=== PATIENT | female | born 1960 | race Caucasian/White ===

== ENCOUNTER → 2019-06-16 | Outpatient (CLI) | payer SELFPAY ==
--- NOTE | 2019-06-16 07:29 | BI_ITS ---
MAMMOGRAPHY - BILATERAL SCREENING REASON FOR EXAM: Female, 58 years old. Routine annual screening examination. PERTINENT HISTORY: Non-contributory. Remote right ultrasound-guided breast biopsy. TECHNIQUE: Digital bilateral breast elaine (3D mammographic acquisition) in the CC and MLO projections. 2-D mediolateral oblique (MLO) and craniocaudad (CC) views of both breasts were obtained. CAD: Full Field Digital Mammography with Computer Added Detection was performed. COMPARISON: Comparison is made with prior outside examination dated May 10, 2014. FINDINGS: Breast Composition: The breasts are extremely dense, which lowers the sensitivity of mammography. There are no dominant masses or suspicious calcifications. A tissue clip marker is seen in the central medial aspect of the right breast. No other significant abnormalities are identified. There has been no significant change since the prior study. BI/SCREEN MAMM (CAD) W/ELAINE BILAT IMPRESSION: Stable bilateral screening mammogram. Yearly follow-up mammogram recommended. (A) ASSESSMENT CATEGORY: BIRADS Category 2: Benign. A letter regarding these results will be sent to the patient by the facility within 30 days. Approximately 10% of breast cancers are not detected by mammography. A normal mammogram should not delay biopsy of a clinically suspicious abnormality. [id number] Electronically Signed: Johnson Verde, at 8:52 EDT , Service support ,
== END | disposition home or self-care (01) ==
PROVIDERS: Family Provider Family Medicine; PCP Family Medicine; Referring Provider Family Medicine; Visit Provider Family Medicine
DX: Z12.31 Encounter for screening mammogram for malignant neoplasm of breast (principal)
CPT/HCPCS: 77063; 77067

== ENCOUNTER → 2023-04-30 | Outpatient (CLI) | payer OTHER, SELFPAY ==
--- NOTE | 2023-04-30 07:35 | BI_ITS ---
MAMMOGRAPHY - BILATERAL SCREENING REASON FOR EXAM: Female, 62 years old. Routine annual screening examination. PERTINENT HISTORY: Non-contributory. TECHNIQUE: Digital bilateral breast elaine (3D mammographic acquisition) in the CC and MLO projections. 2-D mediolateral oblique (MLO) and craniocaudad (CC) views of both breasts were obtained. CAD: Full Field Digital Mammography with Computer Added Detection was performed. COMPARISON: Comparison is made with prior study dated June 16, 2019 and February 12, 2010. FINDINGS: Breast Composition: The breasts are extremely dense, which lowers the sensitivity of mammography. There are no dominant masses or suspicious calcifications. A tissue clip marker is once again seen in the central medial aspect of the No other significant abnormalities are identified. There has been no significant change since the prior study. BI/SCRN MAMM (CAD)W/ELAINE BILAT IMPRESSION: Stable bilateral screening mammogram. Yearly follow-up mammogram recommended. (A) ASSESSMENT CATEGORY: BIRADS Category 2: Benign. A letter regarding these results will be sent to the patient by the facility within 30 days. Approximately 10% of breast cancers are not detected by mammography. A normal mammogram should not delay biopsy of a clinically suspicious abnormality. [id number] Electronically Signed: Johnson Verde MD at 9:06 EDT ,
[2023-04-30 08:18] LABS: Absolute Lymphocyte Count 1.24 X10^3/uL (0.83-4.51); Absolute Neutrophil Count 2.3 X10^3/uL (2.0-7.7); Basophil# 0.06 X10^3/uL; Basophil% 1.4 % (0-1); Eosinophil# 0.09 X10^3/uL; Eosinophils% 2.1 % (0-5); Hematocrit 39.1 % (37-47); Hemoglobin 12.7 g/dL (12.0-15.0); Lymphocyte # 1.24 X10^3/ul (0.83-4.51); Lymphocyte % 29.3 % (19-41); Mean Corp Hgb Conc 32.5 g/dL (32-36); Mean Corpuscular Hgb 30.3 pg (27.0-32.0); Mean Corpuscular Volume 93.3 fL (81-99); Mean Platelet Vol. 9.4 fl (6.2-12.0); Monocyte# 0.54 X10^3/uL; Monocyte% 12.8 % (0-10); NRBC Flagged by Analyzer 0 % (0-5); Neutrophil # 2.29 X10^3/uL (2.7-7.7); Neutrophil % 54.2 % (47-70); Platelet Count 275 K/mm3 (150-450); RBC Distribution Width CV 12.5 % (11.6-14.6); Red Blood Count 4.19 M/mm3 (4.2-5.4); White Blood Count 4.2 K/mm3 (4.4-11.0)
[2023-04-30 08:56] LABS: ALB/GLOB Ratio 1.2 RATIO (0.9-2.4); AST(SGOT) 16 U/L (15-37); Alanine Aminotransfer ALT/SGPT 18 U/L (13-56); Albumin, Serum 3.9 g/dL (3.2-5.0); Alkaline Phosphatase 51 U/L (45-117); Anion Gap 6 (5-15); BUN 17 mg/dL (7-18); BUN/Creat Ratio 26.8 RATIO (10-20); Calcium,Total 8.7 mg/dL (8.5-10.1); Chloride 103 mmol/L (98-107); Cholesterol 187 mg/dL (200); Creatinine, Serum 0.64 mg/dL (0.55-1.02); EST Glomerular Filtration Rate 101 mL/min (>60); Est Glom Filt Rate - Afr Amer 122 mL/min (>60); Globulin 3.2 g/dL (2.2-4.2); Glucose 92 mg/dL (74-106); High Density Lipoprotein 71 mg/dL; Potassium 3.6 mmol/L (3.5-5.1); Protein, Total 7.1 g/dL (6.4-8.2); Sodium Level 136 mmol/L (136-145); Thyroid Stim Hormone (TSH) 1.15 uIU/mL (0.358-3.74); Triglycerides 39 mg/dL; Very Low Density Lipoprotein 8 mg/dL (5-40)
[2023-04-30 09:20] LABS: Hemoglobin A1c 5.6 % (3.8-5.6)
[2023-04-30 09:29] LABS: Vitamin D,25 Hydroxy 46.2 ng/mL
== END | disposition home or self-care (01) ==
PROVIDERS: PCP Family Medicine; Referring Provider Family Medicine; Visit Provider Family Medicine
DX: Z12.31 Encounter for screening mammogram for malignant neoplasm of breast (principal); E55.9 Vitamin D deficiency, unspecified; E78.5 Hyperlipidemia, unspecified; Z13.1 Encounter for screening for diabetes mellitus; Z13.0 Encounter for screening for diseases of the blood and blood-forming organs and certain disorders involving the immune mechanism
CPT/HCPCS: 36415; 77063; 77067; 80053; 80061; 82306; 83036; 84443; 85025

== ENCOUNTER → 2023-05-20 | Outpatient (CLI) | payer OTHER, SELFPAY ==
--- NOTE | 2023-05-20 13:03 | BD_ITS ---
STUDY: DUAL ENERGY X-RAY ABSORPTIOMETRY / DXA REASON FOR EXAM: Female, 62 years old. Z13.820 TECHNIQUE: Bone Mineral Density (BMD) measurements of lumbar spine and bilateral hips were obtained. COMPARISON: None. FINDINGS: Lumbar Spine (L1-L4): g/cm2 (0.717) / T-score (-2.9) / Z-score (-1.3) Findings are suggestive of osteoporosis with a high fracture risk. Left Femur Total: g/cm2 (0.690) / T-score (-2.1) / Z-score (-1.0) Left Femoral Neck: g/cm2 (0.605) / T-score (-2.2) / Z-score (-0.8) Right Femur Total: g/cm2 (0.653) / T-score (-2.4) / Z-score (-1.3) Right Femoral Neck: g/cm2 (0.568) / T-score (-2.5) / Z-score (-1.1) BD/Dexa Bone Density Study IMPRESSION: The patient is considered osteoporotic as outlined below according to World [employer] Organization (WHO) criteria with a high fracture risk. Reference Information: The T-score is the number of standard deviations above or below the standard which is normal for young adults at their peak bone mineral density. The World Health Organization (WHO) interprets the T-scores as follows: Above -1 Normal bone density Between -1 and -2.5 Osteopenia Equal to / or below -2.5 Osteoporosis As a practical clinical guideline, osteopenia may be graded as follows: Mild -1 through -1.5 Moderate -1.6 through -2.0 Severe -2.1 through -2.4 The Z-score is the number of standard deviations above or below age-matched controls. A Z-score of less than -1.5 would be considered abnormal. References: 1. NIH Osteoporosis and Related Bone Diseases www osteo.org 2. International Society for Clinical Densitometry www iscd.org 3. National Osteoporosis Foundation www nof.org Electronically Signed: Johnson Verde MD at 14:10 EDT ,
== END | disposition home or self-care (01) ==
LOC: OPBD 12:59
PROVIDERS: PCP Family Medicine; Referring Provider Family Medicine; Visit Provider Family Medicine
DX: Z13.820 Encounter for screening for osteoporosis (principal)
CPT/HCPCS: 77080

== ENCOUNTER → 2023-12-08 | Outpatient (CLI) | payer OTHER, SELFPAY | END | disposition home or self-care (01) | LOC: LABSPEC 16:14 | PROVIDERS: PCP Family Medicine; Referring Provider Physician Assistant; Visit Provider Physician Assistant | DX: J35.8 Other chronic diseases of tonsils and adenoids (principal) | CPT/HCPCS: 87070 ==

== ENCOUNTER → 2024-08-04 | Outpatient (CLI) | payer OTHER, SELFPAY ==
--- NOTE | 2024-08-04 11:50 | BI_ITS ---
MAMMOGRAPHY - BILATERAL SCREENING REASON FOR EXAM: Female, 64 years old. Routine annual screening examination. PERTINENT HISTORY: Non-contributory. Prior right ultrasound-guided breast biopsy. TECHNIQUE: Digital bilateral breast elaine (3D mammographic acquisition) in the CC and MLO projections. 2-D mediolateral oblique (MLO) and craniocaudad (CC) views of both breasts were obtained. CAD: Full Field Digital Mammography with Computer Added Detection was performed. COMPARISON: Comparison is made with prior study April 30, 2023 and June 16, 2019. FINDINGS: Breast Composition: The breasts are extremely dense, which lowers the sensitivity of mammography. Questionable 1.6 cm spiculated area in the deep lateral aspect of the left breast on the craniocaudad view. The patient will be recalled for additional views including compression spot views and 90 degree lateral. A tissue clip marker is once again seen in the central medial aspect of the right breast. No other significant abnormalities are identified. BI/SCRN MAMM (CAD)W/ELAINE BILAT IMPRESSION: Questionable 1.6 cm spiculated area in the deep lateral aspect of the left breast seen on the craniocaudad view. The patient will be recalled for additional views including 90 degree lateral and compression spot views. Recall Side: Left Breast ASSESSMENT CATEGORY: BIRADS Category 0: Incomplete. Need additional imaging evaluation. A letter regarding these results will be sent to the patient by the facility within 30 days. Approximately 10% of breast cancers are not detected by mammography. A normal mammogram should not delay biopsy of a clinically suspicious abnormality. [id number] Electronically Signed: Johnson Verde MD at 12:37 EST ,
== END | disposition home or self-care (01) ==
LOC: OPBI 11:49
PROVIDERS: PCP Nurse Practitioner Family; Referring Provider Nurse Practitioner Family; Visit Provider Nurse Practitioner Family
DX: Z12.31 Encounter for screening mammogram for malignant neoplasm of breast (principal); M85.80 Other specified disorders of bone density and structure, unspecified site; Z13.820 Encounter for screening for osteoporosis
CPT/HCPCS: 77063; 77067

== ENCOUNTER → 2024-08-04 | Outpatient (CLI) | payer OTHER, SELFPAY ==
[2024-08-04 10:04] LABS: Absolute Lymphocyte Count 1.36 X10^3/uL (0.83-4.51); Absolute Neutrophil Count 1.9 X10^3/uL (2.0-7.7); Basophil# 0.05 X10^3/uL; Basophil% 1.3 % (0-1); Eosinophil# 0.06 X10^3/uL; Eosinophils% 1.5 % (0-5); Hematocrit 37.9 % (37-47); Hemoglobin 12.1 g/dL (12.0-15.0); Lymphocyte # 1.36 X10^3/ul (0.83-4.51); Lymphocyte % 34.3 % (19-41); Mean Corp Hgb Conc 31.9 g/dL (32-36); Mean Corpuscular Hgb 29.2 pg (27.0-32.0); Mean Corpuscular Volume 91.5 fL (81-99); Mean Platelet Vol. 9.4 fl (6.2-12.0); Monocyte# 0.55 X10^3/uL; Monocyte% 13.9 % (0-10); NRBC Flagged by Analyzer 0 % (0-5); Neutrophil # 1.94 X10^3/uL (2.7-7.7); Platelet Count 294 K/mm3 (150-450); RBC Distribution Width CV 12.6 % (11.6-14.6); RBC Distribution Width SD 41.8 fl (35.1-43.9); Red Blood Count 4.14 M/mm3 (4.2-5.4)
[2024-08-04 10:57] LABS: ALB/GLOB Ratio 1.3 RATIO (0.9-2.4); AST(SGOT) 19 U/L (15-37); Alanine Aminotransfer ALT/SGPT 24 U/L (13-56); Albumin, Serum 3.9 g/dL (3.2-5.0); Alkaline Phosphatase 43 U/L (45-117); Anion Gap 7 (5-15); BUN 17 mg/dL (7-18); BUN/Creat Ratio 28.6 RATIO (10-20); Calcium,Total 9.1 mg/dL (8.5-10.1); Chloride 103 mmol/L (98-107); Cholesterol 196 mg/dL (200); EST Glomerular Filtration Rate 108 mL/min (>60); Est Glom Filt Rate - Afr Amer 131 mL/min (>60); Glucose 97 mg/dL (74-106); High Density Lipoprotein 80 mg/dL; Potassium 3.9 mmol/L (3.5-5.1); Protein, Total 6.9 g/dL (6.4-8.2); Sodium Level 137 mmol/L (136-145); Triglycerides 46 mg/dL; Very Low Density Lipoprotein 9 mg/dL (5-40)
[2024-08-07 15:23] LABS: Vitamin D,25 Hydroxy 28.5 ng/mL
== END | disposition home or self-care (01) ==
PROVIDERS: PCP Nurse Practitioner Family; Referring Provider Nurse Practitioner Family; Visit Provider Nurse Practitioner Family
DX: Z00.01 Encounter for general adult medical examination with abnormal findings (principal); E50.9 Vitamin A deficiency, unspecified
CPT/HCPCS: 36415; 80053; 80061; 82306; 85025

== ENCOUNTER → 2024-08-11 | Outpatient (CLI) | payer OTHER, SELFPAY ==
--- NOTE | 2024-08-11 09:10 | BI_ITS ---
MAMMOGRAPHY - UNILATERAL DIAGNOSTIC: LEFT BREAST REASON FOR EXAM: Female, 64 years old. Abnormal screening mammogram. PERTINENT HISTORY: Non-contributory. TECHNIQUE: Compression spot views in the mediolateral oblique and cranial calf projections were obtained. 90 degree lateral view was obtained as well. CAD: Full Field Digital Mammography with Computer Added Detection was performed. COMPARISON: Comparison is made with prior study dated August 04, 2024. FINDINGS: Breast Composition: The breasts are extremely dense, which lowers the sensitivity of mammography. The previously seen questionable abnormality in the left breast is not well seen at this time. Further correlation with ultrasound recommended. No other significant abnormalities are identified. BI/DIAG MAMM W/CAD, UNILAT IMPRESSION: No definite nodule is seen at this time. Correlation with ultrasound is recommended. ASSESSMENT CATEGORY: BIRADS Category 0: Incomplete. Need additional imaging evaluation. A letter regarding these results will be sent to the patient by the facility within 30 days. Approximately 10% of breast cancers are not detected by mammography. A normal mammogram should not delay biopsy of a clinically suspicious abnormality. Electronically Signed: Johnson Verde MD at 11:22 EST ,
--- NOTE | 2024-08-11 09:11 | US_ITS ---
STUDY: ULTRASOUND BREAST - LEFT REASON FOR EXAM: Female, 64 years old. Abnormal screening mammogram. TECHNIQUE: Axial and longitudinal images of the LEFT breast were performed with a high resolution ultrasound transducer. # OF IMAGES: 26 COMPARISON: Comparison is made with prior mammogram done earlier in the day as well as prior mammogram dated August 04, 2024. FINDINGS: LEFT Breast: The upper outer quadrant of the left breast was examined with ultrasound. No sonographic abnormality is seen. US/Breast Limited Unilateral IMPRESSION: No sonographic abnormality is seen. ASSESSMENT CATEGORY: BIRADS Category 1: Negative. A letter regarding these results will be sent to the patient by the facility within 30 days. Electronically Signed: Johnson Verde MD at 11:34 EST ,
== END | disposition home or self-care (01) ==
LOC: OPBI 09:05
PROVIDERS: PCP Nurse Practitioner Family; Referring Provider Nurse Practitioner Family; Visit Provider Nurse Practitioner Family
DX: R92.8 Other abnormal and inconclusive findings on diagnostic imaging of breast (principal)
CPT/HCPCS: 76642; 77065

== ENCOUNTER 2024-10-20 07:51 | Day surgery (SDC) | payer OTHER, SELFPAY ==
[2024-10-20] VITALS (8 sets, daily range): BP systolic 94–112; BP diastolic 68–84; PULSE 63–79; RESP 16; TEMP 36.1–36.6; O2SAT 97–99; BMI 21.1
--- NOTE | 2024-10-20 08:38 | PCM.PRE.AN2 ---
ASA Classification* ASA Classification ASA Classification: 1 Assessment & Plan Anesthesia* Anesthesia Assessment Anesthesia Assessment: Discussed sedation and/or anesthesia options, risks, benefits, and alternatives with patient/parents/legal guardian/POA. Questions invited. The patient/parents/legal guardian/POA seems to understand and agrees to proceed with anesthesia plan. Reviewed the physical assessment, medical history, allergy history and patient home medications list prior to surgery/procedure/anesthetic and documented any changes. Performed airway and anesthesia risk assessments. Anesthesia Type Anesthesia Type: MAC History Source History Obtained from:: Patient and Chart Anesthesia Focused Assessment* Temperature: 97.8 F Pulse Rate: 73 Blood Pressure: 112/84 Respiratory Rate: 16 Pulse Ox: 99 Oxygen Delivery Method: Room Air Airway Assessment Mouth opens: >3 cm Mallampati Score: III Teeth Condition: Caps/Crowns (Patient has a couple crowns. They are tight.) and Missing (Patient has 1 missing lower right molar. Rest are tight.) Neck Range of motion (ROM): Full ROM Focused Labs Anesthesia Preop lab: CBC WBC 4.0 K/mm3 (4.4-11.0) L 08/04/24 08:37 08/04/24 RBC 4.14 M/mm3 (4.2-5.4) L 08/04/24 08:37 08/04/24 Hgb 12.1 g/dL (12.0-15.0) 08/04/24 08:37 08/04/24 Hct 37.9 % (37-47) 08/04/24 08:37 08/04/24 Plt Count 294 K/mm3 (150-450) 08/04/24 08:37 08/04/24 CHEMISTRY Potassium 3.9 mmol/L (3.5-5.1) 08/04/24 08:37 08/04/24 Sodium 137 mmol/L (136-145) 08/04/24 08:37 08/04/24 BUN 17 mg/dL (7-18) 08/04/24 08:37 08/04/24 Creatinine 0.60 mg/dL (0.55-1.02) 08/04/24 08:37 08/04/24 Glucose 97 mg/dL (74-106) 08/04/24 08:37 08/04/24 TSH 1.15 uIU/mL (0.358-3.74) 04/30/23 08:06 04/30/23 COAG Pre-Assessment Diagnosis/Proposed Procedure Planned Operative Procedure(s): CSCOPE Anesthesia History 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 When Was Last Pacemaker Check QUESTION #4 FULL TEXT: You/Your Family Experience fever (hyperthermia) with Anesthesia Last Oral Intake Last Oral intake: Last Oral Intake NPO since 00:00 10/20/24 08:16 Meds taken in AM with sips of No 10/20/24 08:16 water? 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 Female Yes 10/18/24 13:22 HX of Motion Sickness No 10/18/24 13:22 HX of N/V After Surgery No 10/18/24 13:22 Non-Smoker Yes 10/18/24 13:22 Duration of Surgery greater No 10/18/24 13:22 than 60 minutes Number of Risk Factors 2 10/18/24 13:22 PONV Score Moderate Risk 10/18/24 13:22 Height & Weight Height & Weight: Anesthesia: Height & Weight Height 5 ft 4 in 10/20/24 08:16 Weight: 55.8 kg 10/20/24 08:16 Body Mass Index (BMI) 21.1 10/20/24 08:16 Respiratory Assessment Respiratory Assessment - deputy editor in chief: Respiratory Tract Infection Hx - deputy editor in chief Hx Respiratory Tract Infection No 10/18/24 13:22 STOP Sleep Apnea STOP Sleep Apnea - deputy editor in chief: STOP Sleep Apnea - deputy editor in chief Hx Hypertension No 10/18/24 13:22 Hx Sleep Apnea No 10/18/24 13:22 CPAP BIPAP Do you snore loudly (louder No 10/18/24 13:22 than talking or can be heard Do you often feel tired/ No 10/18/24 13:22 fatigued/ sleepy during daytime? Has anyone observed you stop No 10/18/24 13:22 breathing during sleep? STOP Results Negative 10/18/24 13:22 QUESTION #5 FULL TEXT : Do you snore loudly (louder than talking or can be heard through closed doors)? 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 Specify any problems Hx of Preganancy in last 3 N/A 10/18/24 13:22 Months Nurse Filling Out Transfusion NBUCHER 10/18/24 13:22 & Questions: Date: 10/18/24 10/18/24 13:22 Time: 13:23 10/18/24 13:22 Patient unable to answer at this time (ie. confused, unrespo /Reproduction History /Reproductive History - deputy editor in chief: /Reproductive Hx- deputy editor in chief Hx Now No 10/18/24 13:22 Gestational Age (in weeks): EDC: Hx Hx Para Hx Section SAB No 10/18/24 13:22 [facility] Medical History Wears glasses Leg cramps Non-smoker Arthritis Positive colorectal cancer screening using Cologuard test Home Medications ?Medication ?Instructions ?Recorded ?Last Taken ?Type cholecalciferol (vitamin D3) 25 25 mcg PO DAILY 10/18/24 Unknown History mcg (1,000 unit) capsule (Vitamin D3) multivitamin (Daily Multi-Vitamin 1 tab PO DAILY 10/18/24 Unknown History tablet) Allergy/AdvReac Type Severity Reaction Status Date / Time No Known Allergies Allergy Verified 10/20/24 08:16 Surgical History History of endometrial ablation History of hysterectomy Social History adopted: No household members: spouse housing: house number of children: 4 current occupational status: employed current occupation: [employer] pets and animals: No leisure activities: reading Smoking Status: Never smoker second hand exposure: No alcohol intake: never substance use type: does not use well-balanced diet: daily or most days caffeine: No eating out: 1-3 times/week what type of physical activity do you participate in: walking and bicycling frequency: 3-4 times per week duration: 30-45 minutes/day linda/rastafari: Oriental Orthodox seatbelt use: always do you feel safe at home: Yes additional social history: Rasta Review of Systems (Anesthesia) ROS Narrative System reviewed and no additional complaints, except as documented.
--- NOTE | 2024-10-20 09:00 | COLBX_PTH ---
PATIENT: ELVER HUGHES LOC: EN U#:[id number] AGE/SX: 64/F ROOM: RE10/20/[address]: Dr. Juwan Gaines MD : 1960 BED: DIS: 10/20/2024 SPEC #: [id number] RECD: 10/20/24 12:32 STATUS: ALONSO CRISTOBALMaribell #: [id number] MADELYN: 10/20/24 09:[address]: Juwan Gaines DEPT: SURGICAL PATHOLOGY RECD BY: Lizbeth Schwarz ENTERED: 10/20/24 13:32 SP TYPE: COLON BX ISABEL DR: Jess Vail, ENVIRONMENTAL COMPLIANCE MANAGER-C Tissues: Transverse colon Procedures: Surgery Specimen Level IV HEADER OPERATION: Colonoscopy with biopsy of polyp PRE-OP DIAGNOSIS: Positive Cologuard test TISSUE SUBMITTED: Transverse colon polyp biopsy MICROSCOPIC DIAGNOSIS Colon, transverse, biopsy: * Tubular adenoma. MICROSCOPIC DESCRIPTION Slides are reviewed. GROSS DESCRIPTION Received in fixative is one container labeled with the patient's name and designated Transverse colon polyp biopsy. The specimen consists of one irregular fragment of light sheikh soft tissue that measures 0.3 x 0.2 x 0.1 cm. The specimen is totally submitted in one cassette. 10/20/2024 TC: CPT:48791
--- NOTE | 2024-10-20 09:05 | PCM.HP.STD ---
HPI - General General Date of Admission: 10/20/24 Date of Service: 10/20/24 Chief Complaint: Colonoscopy HPI Narrative ELVER HUGHES, is a 64 F who presents for colonoscopy today. She recently underwent Cologuard test which was positive. I saw the patient in the office and recommended colonoscopy. She denied any GI issues or problems. [facility] Medical History Wears glasses Leg cramps Non-smoker Arthritis Positive colorectal cancer screening using Cologuard test Home Medications ?Medication ?Instructions ?Recorded ?Last Taken ?Type cholecalciferol (vitamin D3) 25 25 mcg PO DAILY 10/18/24 Unknown History mcg (1,000 unit) capsule (Vitamin D3) multivitamin (Daily Multi-Vitamin 1 tab PO DAILY 10/18/24 Unknown History tablet) Allergy/AdvReac Type Severity Reaction Status Date / Time No Known Allergies Allergy Verified 10/20/24 08:16 Surgical History History of endometrial ablation History of hysterectomy Social History adopted: No household members: spouse housing: house number of children: 4 current occupational status: employed current occupation: [employer] pets and animals: No leisure activities: reading Smoking Status: Never smoker second hand exposure: No alcohol intake: never substance use type: does not use well-balanced diet: daily or most days caffeine: No eating out: 1-3 times/week what type of physical activity do you participate in: walking and bicycling frequency: 3-4 times per week duration: 30-45 minutes/day linda/islam: Gnosticist seatbelt use: always do you feel safe at home: Yes additional social history: Rasta Vital Signs Vital Signs Vital Signs: 10/20/24 08:16 10/20/24 08:16 10/20/24 08:43 Temperature 97.8 F 97.8 F Temperature Source Temporal Pulse Rate 73 73 Respiratory Rate 16 16 Respiratory Pattern Normal Blood Pressure 112/84 H 112/84 H Blood Pressure Mean 93 Blood Pressure Source Monitor Blood Pressure Position Semi-Fowlers Blood Pressure Location Left Arm Pulse Ox 99 99 Oxygen Delivery Method Room Air Room Air Weight Weight: 123 lb 0.287 oz Body Mass Index (BMI) 21.1 Physical Exam Const alert, oriented x3 and no apparent distress Assessment & Plan Assessment/Plan (1) Positive colorectal cancer screening using Cologuard test: PLAN: Plan The patient is a 64-year-old female in need of a colonoscopy. She recently had a positive Cologuard test. I saw the patient in the office and recommended colonoscopy. We discussed the details of the planned procedure including the risks benefits and alternatives. She wished to proceed. Patient presents today to have a colonoscopy performed. Charges/Coding Visit Charges Inpatient E&M: 45921 Init Hosp L1
--- NOTE | 2024-10-20 09:51 | PCM.POST.ANE ---
Anesthesia: Postop Eval I Current Vital Signs Temperature: 97 F Pulse Rate: 79 Blood Pressure: 99/71 Respiratory Rate: 16 Pulse Ox: 97 Oxygen Delivery Method: Room Air Assessment Airway patent: Yes Spontaneous unlabored respirations: Yes Mental status: Awake and Calm nausea: No Vomiting: No Anesthesia Complication: No Fluid Hydration Crystalloid volume administer (ml): 40 Total IV fluid infused: 40 Progress Note Anesthesia document: Postop Eval 1 completed: Yes
--- NOTE | 2024-10-20 09:52 | OP.COLON_ITS ---
Patient Name: Ashly Felton Procedure Date: 10/20/2024 8:59 AM Date of : 1960 Age: 64 Procedure: Colonoscopy Indications: Positive Cologuard test Providers: Juwan Gaines MD Referring MD: Juwan Gaines MD Medicines: Monitored Anesthesia Care Patient Profile: Refer to note in patient chart for documentation of history and physical. Last Colonoscopy: more than 10 years ago. Complications: No immediate complications. Estimated blood loss: Minimal. Procedure: Pre-Anesthesia Assessment: - Prior to the procedure, a History and Physical was performed, and patient medications and allergies were reviewed. The patient's tolerance of previous anesthesia was also reviewed. The risks and benefits of the procedure and the sedation options and risks were discussed with the patient. All questions were answered, and informed consent was obtained. Prior Anticoagulants: The patient has taken no anticoagulant or antiplatelet agents. ASA Grade Assessment: II - A patient with mild systemic disease. After reviewing the risks and benefits, the patient was deemed in satisfactory condition to undergo the procedure. After I obtained informed consent, the scope was passed under direct vision. Throughout the procedure, the patient's blood pressure, pulse, and oxygen saturations were monitored continuously. The adult colonoscope was introduced through the anus and advanced to the cecum, identified by appendiceal orifice and ileocecal valve. The ileocecal valve, appendiceal orifice, and rectum were photographed. The entire colon was well visualized. The colonoscopy was performed without difficulty. The patient tolerated the procedure well. The quality of the bowel preparation was adequate. Moderate Sedation: See the other procedure note for documentation of moderate sedation with intraservice time. Scope In: 9:13:55 AM Scope Withdrawal Time 0 hours 18 minutes 56 seconds Scope Out: 9:44:19 AM Total Procedure Duration Time 0 hours 30 minutes 24 seconds Findings: The perianal and digital rectal examinations were normal. Internal hemorrhoids were found during retroflexion. The hemorrhoids were mild. A 3 mm polyp was found in the transverse colon. The polyp was semi-sessile. The polyp was removed with a cold biopsy forceps. Resection and retrieval were complete. Verification of patient identification for the specimen was done by the nurse using the patient's name, date and medical record number. The exam was otherwise without abnormality on direct and retroflexion views. Impression: - Internal hemorrhoids. - One 3 mm polyp in the transverse colon, removed with a cold biopsy forceps. Resected and retrieved. - The examination was otherwise normal on direct and retroflexion views. Recommendation: - Discharge patient to home (ambulatory). - High fiber diet. - Await pathology results. - Repeat colonoscopy in 5-10 years for surveillance based on pathology results. - Return to my office PRN. - Continue present medications. Procedure Code(s): --- Professional --- 50281, Colonoscopy, flexible; with biopsy, single or multiple Diagnosis Code(s): --- Professional --- K64.8, Other hemorrhoids D12.3, Benign neoplasm of transverse colon (hepatic flexure or splenic flexure) R19.5, Other fecal abnormalities CPT copyright 2021 [employer]. All rights reserved. The codes documented in this report are preliminary and upon zoo keeper review may be revised to meet current compliance requirements. Juwan Gaines MD 10/20/2024 9:51:19 AM This report has been signed electronically. Number of Addenda: 0 Note Initiated On: 10/20/2024 8:59 AM
--- NOTE | 2024-10-20 09:52 | OP.CCLET_ITS ---
10/20/2024 Mckenna Melchor Re : Colonoscopy procedure for Ashly Felton Dear Yared This procedure was performed on Sunday, October 20, 2024. My impressions and recommendations are as follows: Impressions : - Internal hemorrhoids. - One 3 mm polyp in the transverse colon, removed with a cold biopsy forceps. Resected and retrieved. - The examination was otherwise normal on direct and retroflexion views. Recommendations : - Discharge patient to home (ambulatory). - High fiber diet. - Await pathology results. - Repeat colonoscopy in 5-10 years for surveillance based on pathology results. - Return to my office PRN. - Continue present medications. My findings are described in the full procedure note, which is enclosed. If I can be of further assistance, please feel free to contact me at . Sincerely, Juwan Gaines MD 10/20/2024 9:51:19 AM This report has been signed electronically.
--- NOTE | 2024-10-20 16:15 | PCM.POSTANE2 ---
Anesthesia Postop Eval I Sum Postop Eval Completion status Anesthesia document: Postop Eval 1 completed: Yes Anesthesia Postop Eval I Summary Anesthesia Postop Eval I Summary: Anesthesia Postop Eval I: Assessment Summary Airway patent Yes 10/20/24 09:52 [email or web address] Spontaneous unlabored Yes 10/20/24 09:52 [email or web address] respirations Mental status Awake,Calm 10/20/24 09:52 [email or web address] nausea No 10/20/24 09:52 [email or web address] Vomiting No 10/20/24 09:52 [email or web address] Anesthesia Postop Eval I: Fluid Summary Crystalloid volume administer 40 10/20/24 09:52 [email or web address] (ml) Colloids volume administered ( ml) Blood Product volume administered (ml) Total IV fluid infused 40 10/20/24 09:52 [email or web address] Anesthesia Postop Eval I: Summary Notes Anesthesia Complication No 10/20/24 09:52 [email or web address] Anesthesia Complication Comment: Post-operative progress note Anesthesia: Postop Eval II Evaluation Mental status: Awake and Calm Pain Level: 0 nausea: No Vomiting: No Complications Anesthesia Complication: No
== END 2024-10-20 10:30 | disposition home or self-care (01) ==
LOC: EN 07:51 → AC 07:52
PROVIDERS: PCP Nurse Practitioner Family; Referring Provider Surgery; Visit Provider Surgery
PROC: 0DJD8ZZ Inspection of Lower Intestinal Tract, Via Natural or Artificial Opening Endoscopic (ICD-10-PCS; CPT 45378; principal; 2024-10-20 08:55)
DX: D12.3 Benign neoplasm of transverse colon (principal); K64.8 Other hemorrhoids; R19.5 Other fecal abnormalities
CPT/HCPCS: 45380; 88305; A4216; J2405

== ENCOUNTER → 2025-05-22 | Outpatient (CLI) | payer OTHER, SELFPAY ==
--- NOTE | 2025-05-22 15:52 | BD_ITS ---
PROCEDURE: DEXA BONE DENSITY STUDY 05/22/2025 REASON FOR EXAM: F, age 64 y/o . Postmenopausal screening. TECHNIQUE: Procedure Code: BDDBD Modality: DX Procedure: DEXA BONE DENSITY STUDY COMPARISON: 2022 FINDINGS: BMD and T-SCORES Lumbar spine: 0.695 g/cm2, T-score -3.1 Levels: L1 through L4 Change from prior: Decrease of 3.1%. Left femoral neck: 0.581 g/cm2, T-score -2.4 Femoral neck comparison data not recommended for monitoring change. Prior T-score Left total hip: 0.679 g/cm2, T-score -2.2 Change from prior: Decrease of 1.6%. Right femoral neck: 0.573 g/cm2, T-score -2.5 Femoral neck comparison data not recommended for monitoring change. Prior T-score Right total hip: 0.659 g/cm2, T-score -2.3 Change from prior: Increase of 0.9%. The World Health Organization has defined the following categories based on bone density: Normal bone density: T-score equal to or greater than -1.0 Osteopenia: T-score between -1.0 and -2.5 Osteoporosis: T-score equal to or less than -2.5 FRAX (or Comparable) Fracture Risk Assessment: 10 Year Probability of Fracture: Major Osteoporotic Fracture: 18% Hip Fracture: 4.4% (Note: FRAX is not to be reported in setting of normal range bone density, osteoporosis on DEXA, known history of osteoporosis, prior osteoporotic hip or vertebral fracture, or for any patient undergoing pharmacological treatment for bone loss.) The National Osteoporosis Foundation (NOF) recommends pharmacological treatment for patients with a FRAX 10-year risk of 3% or higher for a hip fracture, or 20% or higher for a major osteoporotic fracture, to prevent osteoporosis and reduce fracture risk. The patient does meet the pharmacological treatment recommendations for prevention of osteoporosis. BD/Dexa Bone Density Study IMPRESSION: OSTEOPOROSIS. Recommend follow-up as clinically warranted. Reading Location: [id number]
== END | disposition home or self-care (01) ==
LOC: OPBD 15:48
PROVIDERS: PCP Nurse Practitioner Family; Referring Provider Nurse Practitioner Family; Visit Provider Nurse Practitioner Family
DX: Z13.820 Encounter for screening for osteoporosis (principal); M85.80 Other specified disorders of bone density and structure, unspecified site; Z78.0 Asymptomatic menopausal state
CPT/HCPCS: 77080

== ENCOUNTER → 2025-07-23 | Outpatient (CLI) | payer OTHER, SELFPAY ==
[2025-07-23 15:39] LABS: Hematocrit 37.0 % (37-47); Hemoglobin 12.5 g/dL (12.0-15.0); Immature Granulocytes Count 0.010 X10^3/uL (0.0-0.0); Mean Corp Hgb Conc 33.8 g/dL (32-36); Mean Corpuscular Volume 91.8 fL (81-99); Mean Platelet Vol. 9.4 fl (6.2-12.0); NRBC Flagged by Analyzer 0 % (0-5); Platelet Count 268 K/mm3 (150-450); RBC Distribution Width CV 12.7 % (11.6-14.6); RBC Distribution Width SD 42.5 fl (35.1-43.9); Red Blood Count 4.03 M/mm3 (4.2-5.4); White Blood Count 5.1 K/mm3 (4.4-11.0)
[2025-07-23 16:55] LABS: AST(SGOT) 28 U/L (<=31); Alanine Aminotransfer ALT/SGPT 20 U/L (<=34); Albumin, Serum 4.6 g/dL (3.4-4.8); Alkaline Phosphatase 49 U/L (35-104); Anion Gap 11 (5-15); BUN 14 mg/dL (4-19); BUN/Creat Ratio 23.7 RATIO (10-20); Calcium,Total 9.3 mg/dL (7.6-11.0); Carbon Dioxide 25.7 mmol/L (21.0-32.0); Chloride 99 mmol/L (98-108); Cholesterol 212 mg/dL (<=200); Globulin 2.6 g/dL (2.2-4.2); Glucose 96 mg/dL (70-99); Low Density Lipoprotein Calc. 124 mg/dL; Potassium 3.8 mmol/L (3.3-5.1); Triglycerides 35 mg/dL; Very Low Density Lipoprotein 7 mg/dL (5-40); Vitamin D,25 Hydroxy 39.9 ng/mL (30-100); cholesterol:hdl ratio screen 2.61
== END | disposition home or self-care (01) ==
LOC: LAB.FUTURE 10-02 13:29
PROVIDERS: PCP Nurse Practitioner Family; Visit Provider Nurse Practitioner Family
DX: Z00.01 Encounter for general adult medical examination with abnormal findings (principal); E50.9 Vitamin A deficiency, unspecified; E78.5 Hyperlipidemia, unspecified; I10 Essential (primary) hypertension
CPT/HCPCS: 36415; 80053; 80061; 82306; 85025

== ENCOUNTER → 2025-08-17 | Outpatient (CLI) | payer OTHER, SELFPAY ==
--- NOTE | 2025-08-17 10:27 | BI_ITS ---
EXAM: SCRN MAMM (CAD)W/ELAINE BILAT DATE: 08/17/2025 CLINICAL HISTORY: F, Age 65 y/o , SCREENING TECHNIQUE: Procedure Code: [id number] Modality: MG Procedure: SCRN MAMM (CAD)W/ELAINE BILAT COMPARISON: Prior exam(s) were compared FINDINGS: TISSUE DENSITY: The breasts are heterogeneously dense, which may obscure small masses. Bilateral Breast Mammographic Findings: No significant masses, calcifications or other abnormalities are identified. BI/SCRN MAMM (CAD)W/ELAINE BILAT IMPRESSION: No mammographic evidence of malignancy. OVERALL FINAL ASSESSMENT BI-RADS 1: NEGATIVE. RECOMMENDATION: Routine annual follow-up in 1 Year Additional Recommendation none A letter with findings and recommendations will be mailed to the patient. Reading Location: [id number]
--- OUTSIDE RECORDS SUMMARY | 2025-08-17 10:37 | XMS RPT_ITS | CCD ---
Author Organization [facility] Care Team Providers Care Wood Chopper Name Role Phone Unavailable Primary Care Provider UnavailPABLITO Montes Attending Unavaila ble DO Marta Dorantes Primary Care Provider [phone] DO Marta Dorantes Referring Provider TORRI Martini Attending Provider [phone] Yared RAPIER INSERTION LOOM FIXER-C, Jess Primary Care Physician Yared RAPIER INSERTION LOOM FIXER-C, Jess Referring Provider Kings Martini Attending Physician Yared RAPIER INSERTION LOOM FIXER-C, Jess Attending Physician Yared, Jess Primary Care Unavailable Juwan Gaines Referring Unavailable Juwan Gaines Attending Unavailable Yared, Jess Primary Care Unavailable Yared, Jess Attending Unavailable Yared, Jess Referring Unavailable Yared, Jess Attending Unavailable Yared, Jess Referring Unavailable Yared, Jess Primary Care Unavailable Yared, Jess Primary Care Unavailable Yared, Jess Attending Unavailable Yared, Jess Referring Unavailable Yared, Jess Attending Unavailable Yared, Jess Referring Unavailable Yared, Jess Primary Care Unavailable Yared, Jess Primary Care Unavailable Yared, Jess Attending Unavailable Yared, Jess Referring Unavailable Yared, Jess Primary Care Unavailable Juwan Gaines Attending Unavailable Yared, Jess Referring Unavailable Juwan Gaines Consulting Unavailable ShengekJuwan A Attending Unavailable Wanek, Juwan A Referring Unavailable Yared, Jess Primary Care Unavailable Leonora, Deloit Attending Unavailable Leonora, Adarsh Referring Unavailable Yared, Jess Primary Care Unavailable Kings Martini Attending Unavailable Yared, Jess Referring Unavailable Yared, Jess Primary Care Unavailable Kings Martini Attending Unavailable Yared, Jess Referring Unavailable Jess Vail Primary Care Unavailable Medications Current Medications Medication Drug Class(es) Dates Sig (Normalized) Sig (Original) cholecalciferol 0.025 mg oral capsule (5 sources) Vitamin D Start: 10-18-2024 take 1 capsule by mouth once daily Start: 03-25-2010 CHOLECALCIFERO L (VITAMIN D3) 1,000 UNIT TAB Take one(1) tablet daily. 0 03/25/2010 Active Comment on above: Take one(1) tablet d aily. Multivitamin (Daily Multi-Vitamin) tablet (2 sources) Start: 10-18-19 25 Belfair (Nk) (1 source) Start: 06-08-20 Belfair (Nk) Active June 08, 2023 12:00am oseltamivir 75 mg oral capsule (2 sources) Neuraminidase Inhibitor Start: 10-01-19 End: 10-06-19 24 take 1 capsule by mouth twice daily oseltamivir (TAMIFLU) 75 mg capsule Indications: Influenza A Take 1 capsule by mouth two times a day for 5 days. 10 capsule 0 10/01/2023 10/06/2023 Active Comment on above: Take 1 capsule by mo [facility] two times a day for 5 days. Completed/Discontinued Medications Medication Drug Class(es) Dates Sig (Normalized) Sig (Original) acyclovir 800 mg oral tablet (2 sources) Herpesvirus Nucleoside Analog DNA Polymerase Inhibitor, Herpes Simplex Virus Nucleoside Analog DNA Polymerase Inhibitor, Herpes Zoster Virus Nucleoside Analog DNA Polymerase Inhibitor Start: 02-29-2024 End: 03-07-2024 take 1 tablet by mouth five times daily Acyclovir 800 mg tablet Discontinued 800 mg PO .COMPLEX 35 7 0 February 29, 2024 12:00am March 06, 2024 12:00am March 07, 2024 12:05am 800 mg orally 5 times per day; MULTIVITAMIN TAB (3 sources) Start: 03-25-2010 MULTIVITAMIN TAB Take one(1) tablet daily. 0 03/25/2010 Active Comment on above: Take one(1) tablet d aily. naproxen sodium 220 mg oral tablet (3 sources) Nonsteroidal Anti-inflammatory Drug Start: 03-25-2010 naproxen sodium(ALEVE 220 MG TAB) takes one tablet every day as needed as directed 0 03/25/2010 Active Comment on above: takes one tablet cristi ry day as needed as directed Problems Active Problems Problem Classification Problem Date Documented Da te Episodic/Chronic Abdominal hernia (1 source) Hernia of abdominal cavity; Translations: [Unspecified abdominal hernia without obstruction or gangrene] Episodic Acute and chronic tonsillitis (3 sources) Exudate on tonsils; Translations: [Other chronic diseases of tonsils and adenoids] 12-08-2023 Chronic Acute and unspecified renal failure (1 source) Acute nontraumatic kidney injury; Translations: [Acute kidney failure, unspecified] Episodic Cancer of bladder (1 source) H/O: malignant neoplasm; Translations: [Personal history of malignant neoplasm of bladder] Episodic Influenza (1 source) Influenza due to Influenza A virus; Translations: [Influenza due to other identified influenza virus with other respiratory manifestations] 10-01-2023 Episodic Osteoarthritis (2 sources) Arthritis; Translations: [Unspecified osteoarthritis, unspecified site] 09-01-2024 Chronic Other diseases of kidney and ureters (1 source) Bilateral hydronephrosis ; Translations: [Unspecified hydronephrosis] Episodic Other gastrointestinal disorders (2 sources) Stool DNA-based colorectal cancer screening positive; Translations: [Other fecal abnormalities] 09-01-2024 Episodic Other injuries and conditions due to external causes (4 sources) Injury of right foot; Translations: [Unspecified injury of right foot, initial encounter] 05-22-2025 Episodic Other injuries and conditions due to external causes (1 source) Unspecified injury of right foot, initial encounter; Translations: [Unspecified injury of right foot, initial encounter] Onset: 05-22-2025 Episodic Other nutritional; endocrine; and metabolic disorders (1 source) H/O: metabolic disorder; Translations: [Personal history of other endocrine, nutritional and metabolic disease] Episodic Other screening for suspected conditions (not mental disorders or infectious disease) (4 sources) Encounter for screening for osteoporosis; Translations: [Encounter for screening for cardiovascular disorders] Onset: 09-06-2024 Episodic Other upper respiratory infections (7 sources) Acute pharyngitis; Translations: [Acute pharyngitis, unspecified] Onset: 10-01-2023 10-01-2023 Episodic Secondary malignancies (1 source) Secondary malignant neoplasm of liver; 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] Chronic Unclassified (1 source) ileoconduit Viral infection (2 sources) Viral disease; Translations: [Viral infection, unspecified] Onset: 10-01-2023 10-01-2023 Episodic Past or Other Problems Problem Classification Problem Date Documented Da te Episodic/Chronic Other gastrointestinal disorders (2 sources) Other fecal abnormalities; Translations: [Other fecal abnormalities] Onset: 10-24-2024 Episodic Results Test Name Value Interpretation Reference Range Facil ity Dexa Bone Density Studyon Dexa Bone Density Study [facility] Imaging Services [address] [place], [place] [address] Dexa Bone Density Study MR#: [id number] Acct: [id number] Name: ASHLY FELTON Rep #: [id number] : 1960 F 64 From: Juvencio Brice MD PCP: MOHAN Melchor Status: REG CLI Study: Dexa Bone Density Study Date of Exam: 05/22/25 Exam# [id number] Ordering Dr: Jess Vail PROCEDURE: DEXA BONE DENSITY STUDY 05/22/2025 REASON FOR EXAM: F, age 64 y/o . Postmenopausal screening. TECHNIQUE: Procedure Code: BDDBD Modality: DX Procedure: DEXA BONE DENSITY STUDY COMPARISON: 2022 FINDINGS: BMD and T-SCORES Lumbar spine: 0.695 g/cm2, T-score -3.1 Levels: L1 through L4 Change from prior: Decrease of 3.1%. Left femoral neck: 0.581 g/cm2, T-score -2.4 Femoral neck comparison data not recommended for monitoring change. Prior T-score Left total hip: 0.679 g/cm2, T-score -2.2 Change from prior: Decrease of 1.6%. Right femoral neck: 0.573 g/cm2, T-score -2.5 Femoral neck comparison data not recommended for monitoring change. Prior T-score Right total hip: 0.659 g/cm2, T-score -2.3 Change from prior: Increase of 0.9%. The World Health Organization has defined the following categories based on bone density: Normal bone density: T-score equal to or greater than -1.0 Osteopenia: T-score between -1.0 and -2.5 Osteoporosis: T-score equal to or less than -2.5 FRAX (or Comparable) Fracture Risk Assessment: 10 Year Probability of Fracture: Major Osteoporotic Fracture: 18% Hip Fracture: 4.4% (Note: FRAX is not to be reported in setting of normal range bone density, osteoporosis on DEXA, known history of osteoporosis, prior osteoporotic hip or vertebral fracture, or for any patient undergoing pharmacological treatment for bone loss.) The National Osteoporosis Foundation (NOF) recommends pharmacological treatment for patients with a FRAX 10-year risk of 3% or higher for a hip fracture, or 20% or higher for a major osteoporotic fracture, to prevent osteoporosis and reduce fracture risk. The patient does meet the pharmacological treatment recommendations for prevention of osteoporosis. BD/Dexa Bone Density Study IMPRESSION: OSTEOPOROSIS. Recommend follow-up as clinically warranted. Reading Location: [id number] CC: MOHAN Vail Chapter Relations Administrator: Signed Normal [facility] Foot 2 Viewson 05-22-2025 Foot 2 Views [facility] Imaging Services [address] [place] [address] Foot 2 Views MR#: [id number] Acct: [id number] Name: ASHLY FELTON Rep #: [id number] : 1960 F 64 From: Atif Vang MD PCP: MOHAN Melchor Status: DEP AMB Study: Foot 2 Views Date of Exam: 05/22/25 Exam# [id number] Ordering Dr: Kings Boyle PROCEDURE: FOOT 2 VIEWS 05/22/2025 REASON FOR EXAM: PAIN AT BASE OF 1ST TOE TECHNIQUE: Procedure Code: RADFO2 Modality: DX Procedure: FOOT 2 VIEWS Right foot two views COMPARISON: None FINDINGS: There is no fracture or dislocation identified. 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 Osteopenia is noted. There is no focal soft tissue abnormality or radiopaque foreign body. RAD/Foot 2 Views IMPRESSION: No fracture or dislocation is identified. Reading Location: [facility] CC: MOHAN [place]; TORRI Wu Chapter Relations Administrator: Signed Normal [facility] Office Visit Reporton 2024 Office Visit Report [facility] Services [address] [place] [address] OFFICE VISIT Date of Service: 05/22/25 MR#: [id number] Acct: [id number] Patient: ASHLY FELTON Rep #: [id number] : 1960 Provider: TORRI Wu Age/Sex: 64/F Location: [facility] Status: Signed Intake Vital Signs 10/20/24 08:16 Height 1.63 m Intake Visit Reasons: RIGHT FOOT INJURY Chief Complaint: right foot pain Allergies No Known Allergies Allergy (Verified 10/20/24 08:16) [facility] Medical History Wears glasses Leg cramps Non-smoker Arthritis Positive colorectal cancer screening using Cologuard test Surgical History History of endometrial ablation History of hysterectomy Social History adopted: No household members: spouse housing: house number of children: 4 current occupational status: employed current occupation: [employer] pets and animals: No leisure activities: reading Smoking Status: Never smoker second hand exposure: No alcohol intake: never substance use type: does not use well-balanced diet: daily or most days caffeine: No eating out: 1-3 times/week what type of physical activity do you participate in: walking and bicycling frequency: 3-4 times per week duration: 30-45 minutes/day linda/uatsdin: Alevism seatbelt use: always do you feel safe at home: Yes additional social history: Rasta ELIOT HPI Chief Complaint: right foot pain Details: ASHLY FELTON, is a 64 F who presents to the office today for right foot pain. Pt injured her right foot. This occurred wednesday. She was moving an eliptical exercise machine and dropped it onto the right foot. It struck at the base of the 1st toe. She has pain in the 1st MTP joint which radiates up the 1st MT. She has some swelling at the distal 1st MT. It hurts to ledy the 1st toe. Other toes are not affected. No numbness or tingling. ROS Const Constitutional: No chills, fatigue or fever(s) Musc Musculoskeletal: Positive for joint pain, joint swelling and stiffness; No deformity, limited range of motion, numbness or tingling Skin Skin: No redness, rash or wounds Neuro Neurology: No numbness or tingling Endo Endocrine: No fatigue Exam Const General: cooperative, healthy appearing, comfortable, no acute distress, well developed and well groomed Nutritional Appearance: average body habitus and well nourished Orientation: alert, awake and oriented x3 Musc Other: R foot: some mild swelling at the distal 1st MT/1st MTP joint. ROM and strength normal. tender to palp at 1st MTP joint, distal 1st MT and 1st MT shaft. Skin Lesions: no lesions Rashes: no rashes Wounds: no wounds Coding Level of Care Code Off vis,est,level 2 Diagnoses Right foot injury S99.921A Assessment and Plan Assessment and Plan (1) Right foot injury: Status: Acute Plan: Xray obtained today interpreted by radiology - no acute fracture. If no improvement 2 weeks may refer to podiatry for further evaluation. Orders: Orders Foot 2 Views Today S99.921A - Unspecified injury of right foot, initial encounter 05/22/25 1307 Date Kings WILD Cosigner Signature: Date (if applicable) CC: Normal [facility] Coronary Angiography CTon Coronary Angiography CT [facility] Imaging Services [address] [place] [address] 11/06/24 0736 MR#: [id number] Acct: [id number] Name: ASHLY FELTON Rep #: [id number] : 1960 64 From: Adarsh Lea MD PCP: MOHAN Melchor Status:REG REF Y Location: CT Calcium Scoring Date of Study:: 11/03/24 Indications Indications: Family history Coronary Calcium Scoring: High-resolution Computed Tomographic imaging of the chest was performed on [11/03/2024], with particular attention paid to the coronary arteries. Images from the examination were analyzed for the presence and extent of coronary artery calcification , using coronary calcium quantification software. The patient tolerated the procedure well and there were no complications. The results of the coronary calcification analysis are provided below. Findings Coronary Artery Left Main (LM): 0 Left Anterior Descending (LAD): 0 Left Circumflex (LCX): 0 Right Coronary Artery (RCA): 0 Total Agatston Score: 0 Percentile Rankinth percentile Calcium Scoring Interpretation: Different methods to categorize the overall amount of coronary plaque. Overall amount CAC SIS Visual of coronary plaque P1 Mild -100 <2 1-2 vessels with mild amount of plaque P2 Moderate 101-300 3-4 1-2 vessels with moderate amount, 3 vessels with mild amount of plaque P3 Severe 301-999 5-7 3 vessels with moderate amount, 1 vessel with severe amount of plaque P4 Extensive >1000 >8 2-3 vessels with severe amount of plaque Conclusion: No atherosclerotic plaquing noted. 11/06/24 0737 Date Adarsh Lea MD Cosigner Signature (if applicable): Date CC: RAPIER INSERTION LOOM FIXER-C Jess Vail; Dr. Adarsh Lea MD Signed Normal [facility] Limited Chest CT Cardiac Onl yon 11-03-[address] Cardiac Only [facility] Imaging Services [address] [place] [address] Cardiac Only MR#: [id number] Acct: [id number] Name: ASHLY FELTON Rep #: [id number] : 1960 F 64 From: Johnson hurtado MD PCP: MOHAN Melchor Status: REG REF Study: Limited Chest CT Cardiac Only Date of Exam: Exam# [id number] Ordering Dr: Jess Vail PROCEDURE: LIMITED CHEST CT CARDIAC ONLY REASON FOR EXAM: SCREENING Family history of coronary artery disease. TECHNIQUE: Chest CT without intravenous contrast administration. COMPARISON: None. FINDINGS: CHEST: Lines and tubes: None. Mediastinum: No evidence of mediastinal hemorrhage. Heart: Normal heart size. No pericardial effusion.. Mild degree of coronary artery calcification. Thoracic Aorta: No evidence of acute traumatic aortic injury. Lungs and Airways: Mild degree of increased linear markings at the lung bases slightly more prominent at the right lung base suggestive of scarring. Pleura: No pleural effusion. No pneumothorax. Bones: Degenerative changes of the spine. CT/Limited Chest CT Cardiac Only IMPRESSION: Mild degree of coronary artery calcification. Mild linear scarring at the lung bases. One or more dose reduction techniques were used (e.g., Automated exposure control, adjustment of the mA and/or kV according to patient size, use of iterative reconstruction technique). Reading Location: [place] [address] CC: RAPIER INSERTION LOOM FIXER-C Jess Vail Chapter Relations Administrator: Signed Normal [facility] Colonoscopy Reporton 025 Colonoscopy Report [facility] Medical Records Department [address] [place] [address] Colonoscopy Report MR#: [id number] Acct: [id number] Name: ASHLY FELTON Rep #: [id number] : 1960 64 From: Juwan Gaines MD PCP: MOHAN Melchor Status:REG [facility] Patient Name: Ashly Felton Procedure Date: 10/20/2024 8:59 AM Date of : 1960 Age: 64 Procedure: Colonoscopy Indications: Positive Cologuard test Providers: Juwan Gaines MD Referring MD: Juwan Gaines MD Medicines: Monitored Anesthesia Care Patient Profile: Refer to note in patient chart for documentation of history and physical. Last Colonoscopy: more than 10 years ago. Complications: No immediate complications. Estimated blood loss: Minimal. Procedure: Pre-Anesthesia Assessment: - Prior to the procedure, a History and Physical was performed, and patient medications and allergies were reviewed. The patient's tolerance of previous anesthesia was also reviewed. The risks and benefits of the procedure and the sedation options and risks were discussed with the patient. All questions were answered, and informed consent was obtained. Prior Anticoagulants: The patient has taken no anticoagulant or antiplatelet agents. ASA Grade Assessment: II - A patient with mild systemic disease. After reviewing the risks and benefits, the patient was deemed in satisfactory condition to undergo the procedure. After I obtained informed consent, the scope was passed under direct vision. Throughout the procedure, the patient's blood pressure, pulse, and oxygen saturations were monitored continuously. The adult colonoscope was introduced through the anus and advanced to the cecum, identified by appendiceal orifice and ileocecal valve. The ileocecal valve, appendiceal orifice, and rectum were photographed. The entire colon was well visualized. The colonoscopy was performed without difficulty. The patient tolerated the procedure well. The quality of the bowel preparation was adequate. Moderate Sedation: See the other procedure note for documentation of moderate sedation with intraservice time. Scope In: 9:13:55 AM Scope Withdrawal Time 0 hours 18 minutes 56 seconds Scope Out: 9:44:19 AM Total Procedure Duration Time 0 hours 30 minutes 24 seconds Findings: The perianal and digital rectal examinations were normal. Internal hemorrhoids were found during retroflexion. The hemorrhoids were mild. A 3 mm polyp was found in the transverse colon. The polyp was semi-sessile. The polyp was removed with a cold biopsy forceps. Resection and retrieval were complete. Verification of patient identification for the specimen was done by the nurse using the patient's name, date and medical record number. The exam was otherwise without abnormality on direct and retroflexion views. Impression: - Internal hemorrhoids. - One 3 mm polyp in the transverse colon, removed with a cold biopsy forceps. Resected and retrieved. - The examination was otherwise normal on direct and retroflexion views. Recommendation: - Discharge patient to home (ambulatory). - High fiber diet. - Await pathology results. - Repeat colonoscopy in 5-10 years for surveillance based on pathology results. - Return to my office PRN. - Continue present medications. Procedure Code(s): --- Professional --- 67915, Colonoscopy, flexible; with biopsy, single or multiple Diagnosis Code(s): --- Professional --- K64.8, Other hemorrhoids D12.3, Benign neoplasm of transverse colon (hepatic flexure or splenic flexure) R19.5, Other fecal abnormalities CPT copyright 2021 [employer]. All rights reserved. The codes documented in this report are preliminary and upon detail sergeant review may be revised to meet current compliance requirements. Juwan Gaines MD 10/20/2024 9:51:19 AM This report has been signed electronically. Number of Addenda: 0 Note Initiated On: 10/20/2024 8:59 AM 10/20/24950 Date Juwan Gaines MD Cosigner Signature: Date (if indicated) CC: RAPIER INSERTION LOOM FIXER-C Jess [place]; Dr. Juwan Gaines MD Date Dictated: 10/20/24858 Date Transcribed: Chapter Relations Administrator: BRETT Bentley [facility] MR/POSTOP.Luis Miguel 10-20-2024 MR/POSTOP.[facility] Medical Records Department [address] [place] [address] Anesthesia Postop Eval I 10/20/2451 MR#: [id number] Acct: [id number] Name: ASHLY FELTON Rep #: [id number] : 1960 64 From: Lemuel Ballard PCP: MOHAN Melchor Status:REG SDC Y Race: C Location: [place] [address] Anesthesia: Postop Eval I Current Vital Signs Temperature: 97 F Pulse Rate: 79 Blood Pressure: 99/71 Respiratory Rate: 16 Pulse Ox: 97 Oxygen Delivery Method: Room Air Assessment Airway patent: Yes Spontaneous unlabored respirations: Yes Mental status: Awake and Calm nausea: No Vomiting: No Anesthesia Complication: No Fluid Hydration Crystalloid volume administer (ml): 40 Total IV fluid infused: 40 Progress Note Anesthesia document: Postop Eval 1 completed: Yes 10/20/24951 Date Lemuel Padilla Signature: Date CC: Signed Normal [facility] MR/ZYNRWAHW6lo 10-20-2024 MR/POSTOPAN2 [facility] Medical Records Department [address] [address] Anesthesia Postop Eval II 10/20/24 1615 MR#: [id number] Acct: [id number] Name: ASHLY FELTON Rep #: [id number] : 1960 64 From: Jose Ybarra CRNA PCP: MOHAN Melchor Status:[facility] Y Race: C Location: EN Anesthesia Postop Eval I Sum Postop Eval Completion status Anesthesia document: Postop Eval 1 completed: Yes Anesthesia Postop Eval I Summary Anesthesia Postop Eval I Summary: Anesthesia Postop Eval I: Assessment Summary Airway patent Yes 10/20/24 09:52 [email or web address] Spontaneous unlabored Yes 10/20/24 09:52 [email or web address] respirations Mental status Awake,Calm 10/20/24 09:52 [email or web address] nausea No 10/20/24 09:52 [email or web address] Vomiting No 10/20/24 09:52 [email or web address] Anesthesia Postop Eval I: Fluid Summary Crystalloid volume administer 40 10/20/24 09:52 [email or web address] (ml) Colloids volume administered ( ml) Blood Product volume administered (ml) Total IV fluid infused 40 10/20/24 09:52 [email or web address] Anesthesia Postop Eval I: Summary Notes Anesthesia Complication No 10/20/24 09:52 [email or web address] Anesthesia Complication Comment: Post-operative progress note Anesthesia: Postop Eval II Evaluation Mental status: Awake and Calm Pain Level: 0 nausea: No Vomiting: No Complications Anesthesia Complication: No 10/20/24 1616 Date Jose Farrarahsan Signature: Date CC: Signed Normal [facility] Surgery Specimen Level Otilio 10-20-2024 Surgery Specimen Level IV -------- Patient Age/Sex Location Account Attending Physician -------- ASHLY FELTON 64/F EN [id number] Dr. Juwan Gaines MD -------- Specimen: [id number] Received: 10/20/24-1232 Status: ALONSO Romeo Num: [id number] Spec Type: COLON BX Subm Dr: Dr. Juwan Gaines MD HEADER OPERATION: Colonoscopy with biopsy of polyp PRE-OP DIAGNOSIS: Positive Cologuard test TISSUE SUBMITTED: Transverse colon polyp biopsy -------- MICROSCOPIC DIAGNOSIS Colon, transverse, biopsy: * Tubular adenoma. MICROSCOPIC DESCRIPTION Slides are reviewed. GROSS DESCRIPTION Received in fixative is one container labeled with the patient's name and designated Transverse colon polyp biopsy. The specimen consists of one irregular fragment of light sheikh soft tissue that measures 0.3 x 0.2 x 0.1 cm. The specimen is totally submitted in one cassette. 10/20/2024 TC: CPT:68476 -------- Patient Age/Sex Location Account Attending Physician -------- ASHLY FELTON 64/F EN [id number] Dr. Juwan Gaines MD -------- Signed (signature on file) Dr. Awilda Nuñez MD 10/23/24 1517 -------- Normal [facility] Comment on above: Performed By: #### P SUIV ####[facility] [address] [place], [place], [id number] Surgery Visit Reporton 09-01 Surgery Visit Report [facility] [address] [place], [place] [address] OFFICE VISIT Date of Service: 09/01/24 MR#: [id number] Acct: [id number] Name: ASHLY FELTON Rep #: [id number] : 1960 Provider: Dr. Juwan hoover MD Age/Sex: 64/F Location: [facility] Status: Signed Intake Vital Signs 09/01/24 12:57 Height 5 ft 4 in Weight: 129 lb 8 oz BMI 22.2 BP 122/80 H Blood Pressure Location Rt brachial Position Sitting Respiration 18 Pulse 77 Pulse Source Monitor Temp 97.2 F L Temp Source Temporal Pulse Oximetry (%) 97 Oxygen Delivery Method room air Intake Visit Reasons: POSITIVE COLOGUARD Chief Complaint: positive cologuard Is patient in pain?: No Allergies No Known Allergies Allergy (Unverified 09/01/24 12:58) Medications ???Medication ???Instructions ???Recorded ???Confirmed ???Type NK 09/01/24 09/01/24 History PFSH Medical History Arthritis Positive colorectal cancer screening using Cologuard test Social History adopted: No household members: spouse housing: house number of children: 4 current occupational status: employed current occupation: [employer] pets and animals: No leisure activities: reading Smoking Status: Never smoker second hand exposure: No alcohol intake: never substance use type: does not use well-balanced diet: daily or most days caffeine: No eating out: 1-3 times/week what type of physical activity do you participate in: walking and bicycling frequency: 3-4 times per week duration: 30-45 minutes/day linda/uatsdin: Alevism seatbelt use: always do you feel safe at home: Yes additional social history: Rasta HPI HPI HPI: The patient is a 64-year-old female who is in good health. She recently underwent Cologuard testing and was found to be Cologuard positive. She has only had 1 previous colonoscopy and this was about 12 or 15 years ago. She denies any GI issues or complaints. No black or tarry stools. No constipation or diarrhea. No family history of colon polyps or colon cancer. She presents today to set up a colonoscopy to investigate her positive Cologuard test. ROS General General: No weight change, appetite, fatigue, colon cancer, breast cancer or weakness HEENT HEENT: No difficulty swallowing, eye injury, eye surgery, swollen glands or hoarseness Endo Endocrine: No thyroid disease, diabetes mellitus, thyroid cancer, Hair loss, heat intolerance or cold intolerance Skin Skin: No rash or changing moles Musc Musculoskeletal: Yes arthritis; No back problems, rheumatoid arthritis, gout or joint pain Cardio Cardiovascular: No murmur, pacemaker, heart disease, atrial fibrillation, high blood pressure, heart attack, heart stent, palpitations, shortness of breat with exertion or chest pain Psych Psychiatric: No depression, anxiety or hearing voices Resp Respiratory: No shortness of breath, No sleep apnea, No cough, No COPD, No asthma, No emphysema and No wheezing Gastro Gastrointestinal: No abdominal pain, No nausea or vomiting, No diarrhea, No constipation, No blood in stool, No acid reflux, No hemorrhoids, No ulcers, No gallbladder problem and No black,tarry stools Ramez Hematologic: No blood thinners, No blood disorders, No bleeding, No anemia and No blood clots Neuro Neurologic: No numbness, No tingling and No weakness Exam Const General: cooperative, healthy appearing, comfortable and no acute distress HENMT Head: normal to inspection Eyes General: appearance normal, both eyes and all related structures Neck Neck: normal visual inspection Resp Effort Inspection: normal respiratory effort and able to speak in complete sentences GI Inspection: normal to inspection Assessment and Plan Assessment and Plan (1) Positive colorectal cancer screening using Cologuard test: Status: Acute Plan: The patient is a healthy 64-year-old female who underwent recent Cologuard testing was found to be positive. We discussed the implications of being Cologuard positive. As a result I recommended that we get her set up for colonoscopy and possible polypectomy if a polyp was found. We discussed the details of the planned procedure including all of the risks benefits and alternatives. She wishes to proceed. This will be scheduled in a timely manner. Coding Level of Care Code Off vis,new,level 4 Diagnoses Positive colorectal cancer screening using Cologuard test R19.5 09/01/24 1306 Date Juwan Gaines MD Cosigner Signature: Date (if applicable) CC: RAPIER INSERTION LOOM FIXER-C R (more content not included)... Normal [facility] Breast Limited Unilateralon 08-11-2024 Breast Limited Unilateral [facility] Imaging Services [address] [place] [address] Breast Limited Unilateral MR#: [id number] Acct: [id number] Name: ASHLY FELTON Rep #: [id number] : 1960 F 64 From: Johnson hurtado MD PCP: MOHAN Melchor Status: [facility] Study: Breast Limited Unilateral Date of Exam: Exam# [id number] Ordering Dr: Jess Vail [id number] STUDY: ULTRASOUND BREAST - LEFT REASON FOR EXAM: Female, 64 years old. Abnormal screening mammogram. TECHNIQUE: Axial and longitudinal images of the LEFT breast were performed with a high resolution ultrasound transducer. # OF IMAGES: 26 COMPARISON: Comparison is made with prior mammogram done earlier in the day as well as prior mammogram dated August 04, 2024. FINDINGS: LEFT Breast: The upper outer quadrant of the left breast was examined with ultrasound. No sonographic abnormality is seen. US/Breast Limited Unilateral IMPRESSION: No sonographic abnormality is seen. ASSESSMENT CATEGORY: BIRADS Category 1: Negative. A letter regarding these results will be sent to the patient by the facility within 30 days. Electronically Signed: Johnson Verde MD at 11:34 EST Reading Location ID and State: [facility] / MD , Service support , CC: MOHAN Vail Chapter Relations Administrator: Signed Normal [facility] DIAG MAMM W/CAD, UNILATon DIAG MAMM W/CAD, UNILAT [facility] Imaging Services [address] [place] [id number] DIAG MAMM W/CAD, UNILAT MR#: [id number] Acct: [id number] Name: ASHLY FELTON Rep #: [id number] : 1960 F 64 From: Johnson hurtado MD PCP: MOHAN Melchor Status: [facility] Study: DIAG MAMM W/CAD, UNILAT Date of Exam: 08/11/24 Exam# [id number] Ordering Dr: Jess Vail [id number] MAMMOGRAPHY - UNILATERAL DIAGNOSTIC: LEFT BREAST REASON FOR EXAM: Female, 64 years old. Abnormal screening mammogram. PERTINENT HISTORY: Non-contributory. TECHNIQUE: Compression spot views in the mediolateral oblique and cranial calf projections were obtained. 90 degree lateral view was obtained as well. CAD: Full Field Digital Mammography with Computer Added Detection was performed. COMPARISON: Comparison is made with prior study dated August 04, 2024. FINDINGS: Breast Composition: The breasts are extremely dense, which lowers the sensitivity of mammography. The previously seen questionable abnormality in the left breast is not well seen at this time. Further correlation with ultrasound recommended. No other significant abnormalities are identified. BI/DIAG MAMM W/CAD, UNILAT IMPRESSION: No definite nodule is seen at this time. Correlation with ultrasound is recommended. ASSESSMENT CATEGORY: BIRADS Category 0: Incomplete. Need additional imaging evaluation. A letter regarding these results will be sent to the patient by the facility within 30 days. Approximately 10% of breast cancers are not detected by mammography. A normal mammogram should not delay biopsy of a clinically suspicious abnormality. Electronically Signed: Johnson Verde MD at 11:22 EST , CC: MOHAN Vail Chapter Relations Administrator: Signed Normal [facility] Vitamin D,25 Hydroxyon 08-07 Vitamin D 25-OH 28.5 ng/mL Normal [facility] Comment on above: Result Comment: Fannie min D 25(OH) Status Range Deficiency <20 ng/mL (50nmol/L) Insufficiency 20 - 30 ng/mL (50 - 75 nmol/L) Sufficiency 30 - 100 ng/mL (75 - 250 nmol/L) Toxicity >100 ng/mL (>250 nmol/L) Performed By: #### L 500.4050, L100.0100, L506.1000, L500.4100 #### [facility] Laboratory [address] [place], [address] CBC W/Diff, Automatedon 12 Absolute Lymph 1.36 X10 3/uL Normal 0.83-4.51 [facility] Comment on above: Performed By: #### L 500.4050, L100.0100, L506.1000, L500.4100 #### [facility] [address] [place], [address] Absolute Neut 1.9 X10 3/uL Low 2.0-7.7 [facility] Comment on above: Performed By: #### L 500.4050, L100.0100, L506.1000, L500.4100 #### [facility] [address] [place], [address] Basophils/100 WBC (Bld) 1.3 % High 0-1 [facility] Comment on above: Performed By: #### L 500.4050, L100.0100, L506.1000, L500.4100 #### [facility] [address] [place], [address] Eosinophils/100 WBC (Bld) 1.5 % Normal 0-5 [facility] Comment on above: Performed By: #### L 500.4050, L100.0100, L506.1000, L500.4100 #### [facility] [address] [place], [address] Erythrocyte distribution width (RBC) [Ratio] 12.6 % Normal 11.6-14.6 [facility] Comment on above: Performed By: #### L 500.4050, L100.0100, L506.1000, L500.4100 #### [facility] [address] [place], [address] Hematocrit (Bld) [Volume fraction] 37.9 % Normal 37-47 [facility] Comment on above: Performed By: #### L 500.4050, L100.0100, L506.1000, L500.4100 #### [facility] [address] [place], [address] Hemoglobin (Bld) [Mass/Vol] 12.1 g/dL Normal 12.0-15.0 [facility] Comment on above: Performed By: #### L 500.4050, L100.0100, L506.1000, L500.4100 #### [facility] [address] [place], [address] IG% 0.000 Normal 0.0-0.9 [facility] Comment on above: Result Comment: IG% - Immature Granulocytes (promyelocytes, myelocytes and metamyelocytes) > 1% indicates that a LEFT SHIFT is Present. Performed By: #### L 500.4050, L100.0100, L506.1000, L500.4100 #### [facility] [address] [place], [address] Lymphocytes/100 WBC (Bld) 34.3 % Normal 19-41 [facility] Comment on above: Performed By: #### L 500.4050, L100.0100, L506.1000, L500.4100 #### [facility] [address] [place], [address] MCH (RBC) [Entitic mass] 29.2 pg Normal 27.0-32.0 [facility] Comment on above: Performed By: #### L 500.4050, L100.0100, L506.1000, L500.4100 #### [facility] [address] [place], [address] MCHC (RBC) [Mass/Vol] 31.9 g/dL Low 32-36 [facility] Comment on above: Performed By: #### L 500.4050, L100.0100, L506.1000, L500.4100 #### [facility] [address] [place], [address] MCV (RBC) [Entitic vol] 91.5 fL Normal 81-99 [facility] Comment on above: Performed By: #### L 500.4050, L100.0100, L506.1000, L500.4100 #### [facility] [address] [place], [address] Monocytes/100 WBC (Bld) 13.9 % High 0-10 [facility] Comment on above: Performed By: #### L 500.4050, L100.0100, L506.1000, L500.4100 #### [facility] [address] [place], [address] Neutrophils/100 WBC (Bld) 49.0 % Normal 47-70 [facility] Comment on above: Performed By: #### L 500.4050, L100.0100, L506.1000, L500.4100 #### [facility] [address] [place], [address] Nucleated RBC (Bld) [#/Vol] 0 10*3/uL Normal 0-5 [facility] Comment on above: Performed By: #### L 500.4050, L100.0100, L506.1000, L500.4100 #### [facility] [address] [place], [address] Platelet mean volume (Bld) [Entitic vol] 9.4 fL Normal 6.2-12.0 [facility] Comment on above: Performed By: #### L 500.4050, L100.0100, L506.1000, L500.4100 #### [facility] [address] [place], [address] Platelets (Bld) [#/Vol] 294 10*3/uL Normal 150-450 [facility] Comment on above: Performed By: #### L 500.4050, L100.0100, L506.1000, L500.4100 #### [facility] [address] [place], [address] RBC (Bld) [#/Vol] 4.14 10*6/uL Low 4.2-5.4 [facility] Comment on above: Performed By: #### L 500.4050, L100.0100, L506.1000, L500.4100 #### [facility] [address] [place], [address] RDW SD 41.8 fl Normal 35.1-43.9 [facility] Comment on above: Performed By: #### L 500.4050, L100.0100, L506.1000, L500.4100 #### [facility] [address] [place], [address] WBC (Bld) [#/Vol] 4.0 10*3/uL Low 4.4-11.0 [facility] Comment on above: Performed By: #### L 500.4050, L100.0100, L506.1000, L500.4100 #### [facility] [address] [place], [address] Comprehensive Metabolic Prof [facility] 08-04-2024 Albumin [Mass/Vol] 3.9 g/dL Normal 3.2-5.0 [facility] Comment on above: Performed By: #### L 500.4050, L100.0100, L506.1000, L500.4100 #### [facility] [address] [place], [address] Albumin/Globulin [Mass ratio] 1.3 {ratio} Normal 0.9-2.4 [facility] Comment on above: Performed By: #### L 500.4050, L100.0100, L506.1000, L500.4100 #### [facility] [address] [place], [address] ALK P 43 U/L Low 45-117 [facility] Comment on above: Performed By: #### L 500.4050, L100.0100, L506.1000, L500.4100 #### [facility] [address] [place], [address] ALT [Catalytic activity/Vol] 24 U/L Normal 13-56 [facility] Comment on above: Performed By: #### L 500.4050, L100.0100, L506.1000, L500.4100 #### [facility] [address] [place], [address] AST [Catalytic activity/Vol] 19 U/L Normal 15-37 [facility] Comment on above: Performed By: #### L 500.4050, L100.0100, L506.1000, L500.4100 #### [facility] [address] [place], [address] Bilirubin [Mass/Vol] 0.70 mg/dL Normal 0.20-1.00 [facility] Comment on above: Result Comment: For patients on eltrombopag therapy, use of Dimension Panacea TBIL is not recommended. Performed By: #### L 500.4050, L100.0100, L506.1000, L500.4100 #### [facility] [address] [place], [address] BUN/CRE 28.6 RATIO High 10-20 [facility] Comment on above: Performed By: #### L 500.4050, L100.0100, L506.1000, L500.4100 #### [facility] [address] [place], [address] CA,Total 9.1 mg/dL Normal 8.5-10.1 [facility] Comment on above: Performed By: #### L 500.4050, L100.0100, L506.1000, L500.4100 #### [facility] [address] [place], [address] Chloride [Moles/Vol] 103 mmol/L Normal 98-107 [facility] Comment on above: Performed By: #### L 500.4050, L100.0100, L506.1000, L500.4100 #### [facility] [address] [place], [address] CO2 [Moles/Vol] 27.0 mmol/L Normal 21.0-32.0 [facility] Comment on above: Performed By: #### L 500.4050, L100.0100, L506.1000, L500.4100 #### [facility] [address] [place], [address] Creatinine [Mass/Vol] 0.60 mg/dL Normal 0.55-1.02 [facility] Comment on above: Result Comment: The validity of the calculated GFR GFRAA in patients over 70 years has not been determined. Clinical correlation is essential. Performed By: #### L 500.4050, L100.0100, L506.1000, L500.4100 #### [facility] [address] [place], [address] EST GFR - AA 131 mL/min Normal >60 [facility] Comment on above: Result Comment: Afri can Vincentian GFR Calc Performed By: #### L 500.4050, L100.0100, L506.1000, L500.4100 #### [facility] [address] [place], [address] GAP 7 Normal 5-15 [facility] Comment on above: Performed By: #### L 500.4050, L100.0100, L506.1000, L500.4100 #### [facility] [address] [place], [address] GFR/1.73 sq M.predicted among non-blacks MDRD (S/P/Bld) [Vol rate/Area] 108 mL/min/{1.73_m2} Normal >60 [facility] Comment on above: Result Comment: Non- GFR Calc Performed By: #### L 500.4050, L100.0100, L506.1000, L500.4100 #### [facility] [address] [place], [address] Globulin (S) [Mass/Vol] 3.0 g/dL Normal 2.2-4.2 [facility] Comment on above: Performed By: #### L 500.4050, L100.0100, L506.1000, L500.4100 #### [facility] [address] [place], [address] Glucose [Mass/Vol] 97 mg/dL Normal 74-106 [facility] Comment on above: Performed By: #### L 500.4050, L100.0100, L506.1000, L500.4100 #### [facility] [address] [place], [address] Potassium [Moles/Vol] 3.9 mmol/L Normal 3.5-5.1 [facility] Comment on above: Performed By: #### L 500.4050, L100.0100, L506.1000, L500.4100 #### [facility] [address] [place], [address] Sodium [Moles/Vol] 137 mmol/L Normal 136-145 [facility] Comment on above: Performed By: #### L 500.4050, L100.0100, L506.1000, L500.4100 #### [facility] [address] [place], [address] T PROT 6.9 g/dL Normal 6.4-8.2 [facility] Comment on above: Performed By: #### L 500.4050, L100.0100, L506.1000, L500.4100 #### [facility] [address] [place], [address] Urea nitrogen [Mass/Vol] 17 mg/dL Normal 7-18 [facility] Comment on above: Performed By: #### L 500.4050, L100.0100, L506.1000, L500.4100 #### [facility] [address] [place], [address] Lipid Profileon 08-04-2024 Cholesterol [Mass/Vol] 196 mg/dL Normal 200 [facility] Comment on above: Result Comment: <200 mg/dL Desirable 200-240 mg/dL Borderline >240 mg/dL High Risk Performed By: #### L 500.4050, L100.0100, L506.1000, L500.4100 #### [facility] [address] [place], [address] Cholesterol in HDL [Mass/Vol] 80 mg/dL Normal [facility] Comment on above: Result Comment: The drugs N-Acetylcysteine and Metamizole may falsely depress this assay. Reference Range HDL <40 mg/dL Low HDL Cholesterol HDL >or= 60 mg/dL High HDL Cholesterol Performed By: #### L 500.4050, L100.0100, L506.1000, L500.4100 #### [facility] [address] [place], [address] Cholesterol in LDL [Mass/Vol] 107 mg/dL Normal 0-130 [facility] Comment on above: Performed By: #### L 500.4050, L100.0100, L506.1000, L500.4100 #### [facility] [address] [place], [address] Cholesterol in VLDL [Mass/Vol] 9 mg/dL Normal 5-40 [facility] Comment on above: Performed By: #### L 500.4050, L100.0100, L506.1000, L500.4100 #### [facility] [address] [place], [address] Triglyceride [Mass/Vol] 46 mg/dL Normal [facility] Comment on above: Result Comment: The drugs N-Acetylcysteine and Metamizole may falsely depress this assay. Serum Triglycerides Reference Interval Normal <150 mg/dL Borderline high 150 - 199 mg/dL High 200 - 499 mg/dL Very High > or = 500 mg/dL Performed By: #### L 500.4050, L100.0100, L506.1000, L500.4100 #### [facility] [address] [place], [address] SCRN MAMM (CAD)W/ELAINE BILATo n 08-04-2024 SCRN MAMM (CAD)W/ELAINE BILAT [facility] Imaging Services [address] [place] [address] SCRN MAMM (CAD)W/ELAINE BILAT MR#: [id number] Acct: [id number] Name: ASHLY FELTON Rep #: [id number] : 1960 F 64 From: Johnson hurtado MD PCP: MOHAN Melchor Status: [facility] Study: SCRN MAMM (CAD)W/ELAINE BILAT Date of Exam: 07/23 11/13 Exam# [id number] Ordering Dr: Jess Vail RAPIER INSERTION LOOM FIXER-C [id number] MAMMOGRAPHY - BILATERAL SCREENING REASON FOR EXAM: Female, 64 years old. Routine annual screening examination. PERTINENT HISTORY: Non-contributory. Prior right ultrasound-guided breast biopsy. TECHNIQUE: Digital bilateral breast elaine (3D mammographic acquisition) in the CC and MLO projections. 2-D mediolateral oblique (MLO) and craniocaudad (CC) views of both breasts were obtained. CAD: Full Field Digital Mammography with Computer Added Detection was performed. COMPARISON: Comparison is made with prior study April 30, 2023 and June 16, 2019. FINDINGS: Breast Composition: The breasts are extremely dense, which lowers the sensitivity of mammography. Questionable 1.6 cm spiculated area in the deep lateral aspect of the left breast on the craniocaudad view. The patient will be recalled for additional views including compression spot views and 90 degree lateral. A tissue clip marker is once again seen in the central medial aspect of the right breast. No other significant abnormalities are identified. BI/SCRN MAMM (CAD)W/ELAINE BILAT IMPRESSION: Questionable 1.6 cm spiculated area in the deep lateral aspect of the left breast seen on the craniocaudad view. The patient will be recalled for additional views including 90 degree lateral and compression spot views. Recall Side: Left Breast ASSESSMENT CATEGORY: BIRADS Category 0: Incomplete. Need additional imaging evaluation. A letter regarding these results will be sent to the patient by the facility within 30 days. Approximately 10% of breast cancers are not detected by mammography. A normal mammogram should not delay biopsy of a clinically suspicious abnormality. [id number] Electronically Signed: Johnson Verde MD at 12:37 EST , CC: MOHAN Vail Chapter Relations Administrator: Signed Normal [facility] Throat specimen bacteria irineo ntification by cultureOrdered By: Kings Boyle on 12-08-2023 Bacteria identified Cx Nom (Throat) streptococcus isolated. [facility] CNPNon 10-02-2023 CNPN Telephone ([facility]) ASHLY FELTON ([id number]) 1960 F Date Time Provider Department 10/02/23 CHRISTA VILLAFANA [facility] During your visit today, we recorded the following information about you: Tika Colbert MA 10/02/2023 11:01 AM Signed ----- Message from Christa Villafana PA-C sent at 10/01/2023 7:43 PM EST ----- Please contact patient of positive influenza A result. Tamiflu was sent into pharmacy on file. Tika Colbert MA 10/02/2023 11:02 AM Signed LM to review with pt. CHRISTIANO Orozco Elizabeth, MA 10/02/2023 11:06 AM Signed PT returned call. Reviewed with pt. Voiced understanding. Tika Colbert MA Allergies As of Date: 10/02/2023 (No Known Allergies) Date Reviewed: 10/01/2023 Reviewed by: Pablito Max MD - Fully Assessed Reason for Visit: Results [95] Cmt: FLU A Prescriptions as of 10/02/2023 - oseltamivir (TAMIFLU) 75 mg capsule Take 1 capsule by mouth two times a day for 5 days. - MULTIVITAMIN TAB Take one(1) tablet daily. - CHOLECALCIFEROL (VITAMIN D3) 1,000 UNIT TAB Take one(1) tablet daily. - naproxen sodium(ALEVE 220 MG TAB) takes one tablet every day as needed as directed Problem List As Of Date: 10/02/2023 (None) Encounter Status:Closed by TIKA COLBERT on 10/02/23 [facility] CNOVon 10-01-2023 CNOV Office Visit ([facility] ) ASHLY FELTON ([id number]) 1960 F Date Time Provider Department 10/01/23 9:50 AM PABLITO MAX [facility] During your visit today, we recorded the following information about you: Temperature Pulse Respiration Blood pressure 98.1 degrees 96/minute 16/minute 120/80 Weight 56.7 kg Pablito Max MD 10/01/2023 10:25 AM Signed Ashly Felton is a 63 year old female who presents with Sore Throat (Fever,yesterday) She is 63 years old presenting today with a chief complaint of sore throat onset yesterday. She also has fever of 99.9 ?F as well as body aches. 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 She agreed to be tested. PAST MEDICAL HISTORY Diagnosis Date PMH - PAST MEDICAL HISTORY OF arthritis hands There is no problem list on file for this patient. Current Outpatient Medications Medication Sig Dispense Refill MULTIVITAMIN TAB Take one(1) tablet daily. 0 CHOLECALCIFEROL (VITAMIN D3) 1,000 UNIT TAB Take one(1) tablet daily. 0 naproxen sodium(ALEVE 220 MG TAB) takes one tablet every day as needed as directed 0 No current facility-administered medications for this visit. Social History Tobacco Use Smoking status: Never Smokeless tobacco: Never Substance Use Topics Alcohol use: No Drug use: No Alcohol Use: No Tobacco Use: Never FAMILY HISTORY Problem Relation Age of Onset Heart Father Review of Systems Constitutional: Negative for chills and fever. HENT: Positive for sore throat. Negative for congestion, ear pain and sinus pain. Respiratory: Positive for cough. Negative for hemoptysis, sputum production, shortness of breath, wheezing and stridor. Cardiovascular: Negative for chest pain. Gastrointestinal: Negative for abdominal pain, diarrhea and vomiting. Skin: Negative for rash. Neurological: Negative for dizziness and headaches. BP 120/80 Pulse 96 Temp (Src) 98.1 (Temporal) Resp 16 Wt 125 lb (56.7kg) SpO2 98% Physical Exam Vitals and nursing note reviewed. Constitutional: Comments: PHYSICAL EXAMINATION: GENERAL:The patient is alert oriented in no acute distress. HEAD:Head is atraumatic normocephalic. EYES: Normal sclerae and conjunctivae. EARS: Normal tympanic membranes. NOSE: No maxillary sinus tenderness bilaterally. MOUTH: Erythema of the pharynx. Tongue and lips are unremarkable. Uvula at midline. NECK: No cervical adenopathy. No stridor. No trismus. No hoarseness. Normal phonation. LUNGS: No labored breathing. Clear to auscultation. I do not suspect pneumonia. HEART: Regular rate and rhythm. No murmurs, rubs or gallops. MUSCULOSKELETAL: Moves all extremities. SKIN: Warm, dry no clubbing cyanosis or edema. NEUROLOGY: Cranial nerves II through XII grossly intact without any focal neurological deficits. PSYCHIATRY: Cooperative. Normal mood and affect. Rapid strep test was negative. Culture is pending. COVID-19, influenza, RSV obtained results are pending. Suspect viral illness. Patient would like to be treated with Paxlovid as well as Tamiflu if results are positive. Home-going instructions discussed with patient. Follow-up if not improving. Discharged in stable condition. ASSESSMENT/PLAN: 1. Acute pharyngitis, unspecified etiology - ICD9: 462, ICD10: J02.9 (primary diagnosis) - RAPID GROUP A STREP RFLX TO PCR - GROUP A STREPTOCOCCUS BY PCR 2. Viral illness - ICD9: 079.99, ICD10: B34.9 - COVID AND INFLUENZA A/B AND RSV NAAT, EXPEDITED Pablito Langston MD 10/01/2023 10:23 AM Signed Patient will be notified of results within the next 12 to 24 hours. Patient instructed to return in the next 3 to 5 days if not improving. Patient instructed to keep routine appointment with primary care provider. Allergies As of Date: 10/01/2023 (No Known Allergies) Date Reviewed: 10/01/2023 Reviewed by: Pablito Max MD - Fully Assessed Reason for Visit: Sore Throat [200] Cmt: Fever,yesterday Primary Visit Diagnosis:Acute pharyngitis, unspecified etiology [J02.9] Other Visit Diagnosis:Viral illness [B34.9] Order(s):RAPID GROUP A STREP RFLX TO PCR [SQSTAPCR] Order #: [id number] FUTURE COVID AND INFLUENZA A/B AND RSV NAAT, EXPEDITED [SQEXCFR] Order #: [id number] FUTURE RAPID GROUP A STREP RFLX TO PCR [SQSTAPCR] Order #: [id number]. #:[id number] COVID AND INFLUENZA A/B AND RSV NAAT, EXPEDITED [SQEXCFR] Order #: [id number]. #:[id number] GROUP A STREPTOCOCCUS BY PCR [SQGASPCR] Reflex Order#: [id number] (Ord#:[id number])Spec . #:[id number] Prescriptions as of 10/01/2023 - MULTIVITAMIN TAB Take one(1) tablet daily. - CHOLECALCIFEROL (VITAMIN D3) 1,000 UNIT TAB Take one(1) tablet daily. - naproxen sodium(ALEVE 220 MG TAB) takes one tablet every day as needed a (more content not included)... Normal [facility] COVID AND INFLUENZA A/B & RS V NAAT, EXPEDITEDon 10-01-2023 FLUAV RNA XIANG+probe Ql (Unsp spec) Detected Abnormal Not Detected [facility] FLUBV RNA XIANG+probe Ql (Unsp spec) Not detected Not Detected [facility] RSV A RNA XIANG+probe Ql (Unsp spec) Not detected Not Detected [facility] SARS-CoV-2 (COVID-19) RNA XIANG+probe Ql (Resp) Not detected See comment [facility] FLUABV+SARS-CoV-2+RSV Pnl Re sp XIANG+probeon 10-01-2023 FLUABV+SARS-CoV-2+RS V Pnl Resp XIANG+probe COVID 19 RESULT: Not detected The method used is RT-PCR or an equivalent NAAT method. Reference Range(the expected result in uninfected individuals): Not detected INFLUENZA A PCR: Detected INFLUENZA B PCR: Not detected RSV PCR: Not detected Abnormal [facility] Comment on above: Performed By: #### 9 [id number] #### [facility] CLIA [id number] [address] [place] [address] [place] GROUP A STREPTOCOCCUS BY PCR on 10-01-2023 S. pyogenes DNA XIANG+probe Ql (Throat) Not detected Not detected [facility] RAPID GROUP A STREP RFLX TO PCRon 10-01-2023 S. pyogenes Ag Ql (Throat) Negative Normal Negative Group A Strep Screen [facility] Comment on above: Order Comment: Speci men Type: SPECIMEN FROM THROAT Ordering Facility: [facility] Address: [address] [place] [address] Performed By: #### S TAPCR #### [facility] CLIA [id number] [address] [place] [address] [place] #### [id number] #### [facility] CLIA [id number] [address] [place] [address] STATES [facility] S. pyogenes Ag Ql (Throat) Negative Negative Group A Strep Screen [facility] S pyo DNA Throat Ql XIANG+prob darrick 10-01-2023 S. pyogenes DNA XIANG+probe Ql (Throat) Not detected Normal Not detected [facility] Comment on above: Order Comment: Speci men Type: SPECIMEN FROM THROAT Ordering Facility: [facility] Address: [address] [place] [address] Performed By: #### S TAPCR #### [facility] CLIA [id number] [address] [place] [address] [place] #### [id number] #### [facility] CLIA [id number] [address] [place] [address] [place] Vital Signs Date Time Vital Sign Value Performing Clinician Faci litchelle 12-08-2023 06:55-0400 Body temperature 98.6 [degF] DO Marta Dorantes Work Phone: [facility] 12-08-2023 06:55-0400 Diastolic blood pressure 70 mm[Hg] DO Marta Dorantes Work Phone: [facility] 12-08-2023 06:55-0400 Heart rate 80 /min DO Marta Dorantes Work Phone: [facility] 12-08-2023 06:55-0400 Respiratory rate 16 /min DO Marta Dorantes Work Phone: [facility] 12-08-2023 06:55-0400 SaO2% (BldA) [Mass fraction] 97 % DO Marta Dorantes Work Phone: [facility] 12-08-2023 06:55-0400 Systolic blood pressure 106 mm[Hg] DO Marta Dorantes Work Phone: [facility] 10-01-2023 09:57-0500 Body temperature 98.1 [degF] Pablito Max MD Work Phone: [facility] 10-01-2023 09:57-0500 Body weight 56.7 kg Pablito Max MD Work Phone: [facility] 10-01-2023 09:57-0500 Diastolic blood pressure 80 mm[Hg] Pablito Max MD Work Phone: [facility] 10-01-2023 09:57-0500 Heart rate 96 /min Pablito Max MD Work Phone: [facility] 10-01-2023 09:57-0500 Respiratory rate 16 /min Pablito Max MD Work Phone: [facility] 10-01-2023 09:57-0500 SaO2% (BldA) [Mass fraction] 98 % Pablito Max MD Work Phone: [facility] 10-01-2023 09:57-0500 Systolic blood pressure 120 mm[Hg] Pablito Max MD Work Phone: [facility] Encounters Encounter Date Encounter Type Care Provider Facility Start: 05-22-2025 Patient encounter procedure Jess PRESTON -Outpatient Bone Densitometry Work Phone: Start: 05-22-2025 End: 05-22-2025 Patient encounter procedure Kings WILD -[facility] Work Phone: Start: 05-22-2025 End: 05-22-2025 ambulatory Jess Vail RAPIER INSERTION LOOM FIXER-C Work Phone: -[facility] Start: 05-22-2025 End: 05-22-2025 ambulatory [facility] Facility:[facility] Start: 11-03-2024 ambulatory Adarsh Lea Facility:[facility] Start: 10-20-2024 ambulatory Juwan Simental Shengkiko Facility :[facility] Start: 10-20-2024 End: 10-20-2024 ambulatory [facility] Facility:[facility] Start: 09-06-2024 Encounter for genera l adult medical examination with abnormal findings [facility] Start: 09-01-2024 End: 09-01-2024 ambulatory [facility] Start: 08-11-2024 End: 08-11-2024 ambulatory [facility] Facility:[facility] Start: 08-04-2024 End: 08-04-2024 ambulatory [facility] Facility:[facility] Start: 12-08-2023 End: 12-08-2023 ambulatory DO Marta Dorantes Work Phone: [facility] Work Phone: Start: 12-08-2023 End: 12-08-2023 Patient encounter procedure DO Marta Dorantes Work Phone: [facility]Laboratory, Specimen Work Phone: Start: 12-08-2023 End: 12-08-2023 Patient encounter procedure DO Marta Dorantes Work Phone: [facility] Work Phone: Start: 10-02-2023 Telephone encounter Christa Villafana PA-C Work Phone: [facility] Comment on above: Results (FLU A ) Start: 10-01-2023 End: 10-01-2023 Patient encounter procedure Pablito Max MD Work Phone: [facility] Comment on above: Acute pharyngitis, u nspecified etiology (Primary Dx); Viral illness Influenza A (Primary Dx) Start: 10-01-2023 End: 10-01-2023 ambulatory PABLITO MAX Facility:[id number] Procedures Date Procedure Procedure Detail Performing Clinician Start: 05-22-2025 Dual energy X-ray absorptiometry Jess Vail RAPIER INSERTION LOOM FIXER-C Work Phone: Start: 05-22-2025 Radiologic examinati on foot 2 views Jess Vail RAPIER INSERTION LOOM FIXER-C Work Phone: Start: 12-08-2023 Bacteria identificat ion test DO Marta Dorantes Work Phone: Start: 10-01-2023 Iadna streptococcus group a amplified probe tq Pablito Max MD Work Phone: Start: 10-01-2023 COVID AND INFLUENZA A/B & RSV NAAT, EXPEDITED Pablito Max MD Work Phone: Plan of Treatment Date Care Activity Detail Author Start: 08-23-2023 Depression Assessment Depression Ass essment [facility] Start: 06-25-2023 Shingrix Vaccine (2 of 2) Johns grix Vaccine (2 of 2) [facility] Start: 04-23-2023 Covid-19 Vaccine ( season) Covid-19 Vaccine ( season) [facility] Start: 2020 RSV Vaccine (1 - 1-d ose 60+ series) RSV Vaccine (1 - 1-dose 60+ series) [facility] Start: 05-10-2015 Screening for malign ant neoplasm of breast Mammogram Screening [facility] Start: 06-29-2008 Screening for malign ant neoplasm of cervix Pap Testing [facility] Start: 2005 Diabetes Screening Diabetes Screenin g [facility] Start: 2005 Lipid panel Lipid Screening [facility] Start: 2005 Screening for malign ant neoplasm of colon [facility] Start: 1990 Screening for malign ant neoplasm of cervix HPV Testing [facility] Start: 1979 Urine microalbumin profile DTa P,Tdap,Td Vaccine (1 - Tdap) [facility] Start: 1978 Hepatitis C screening Hepatitis C Ks pelon [facility] Start: 1978 [facility] Immunizations Immunization Date Immunization Notes Care Provider Mary kruse 06-08-2023 influenza, injectabl e, quadrivalent, preservative free DO Marta Jos eE Work Phone: [facility] 12-07-2022 Hepatitis B vaccine (recombinant), CpG adjuvanted DO Marta Dorantes Work Phone: [facility] 09-25-2020 Covid (Moderna) DO Marta Hinds sherin Work Phone: [facility] 08-30-2020 Covid (Moderna) DO Marta Lizet duff Work Phone: [facility] Payers Date Payer Category Payer Unknown [id number] 2024 Self-pay [id number] 2023 Private Health Insurance [facility] [id number] 2023-Present [phone] [address] [place] [address] PPO [id number] 2023 Private Health Insurance [id number] Unknown [id number] Unknown [id number] Unknown [id number] 62 Unknown [id number] 62 Unknown [id number] 62 Unknown [id number] 62 Unknown [id number] 62 Unknown [id number] 62 Unknown [id number] 62 Unknown [id number] 62 Unknown [id number] 62 Unknown [id number] 62 Unknown [id number] 62 Social History Date Type Detail [facility] Work Phone: Start: 1960 Sex Assigned At Female [facility] Start: 10-01-2023 End: 10-18-2024 Tobacco smoking status NHIS Never smoked tobacco [facility] Start: 10-01-2023 Tobacco use and exposure Smokeless tobacco non-user [facility] Start: 10-01-2023 Alcohol intake Current non-dr sap project manager of alcohol (finding) [facility] Start: 10-01-2023 History of Social function [facility] Start: 10-01-2023 Tobacco use panel [facility] Start: 1960 Sex Assigned At Not on file [facility] Start: 12-08-2023 [facility] Clinical Notes 10-01-2023 to 05-22-2025 Telephone Encounter - Tika Colbert MA - 10/02/2023 11:06 AM ESTTelephone Encounter - Tika Colbert MA - 10/02/2023 11:02 AM Christa Gipson PA-C - 10/01/2023 7:42 PM EST Note Date & Type Note Facility 05-22-2025 Progress note [facility] 05-22-2025 Radiology Diagnostic study note [facility] Imaging Services [address] [place] [address] Foot 2 Views MR#: [id number] Acct: [id number] Name: ASHLY FELTON Rep #: [id number] : 1960 F 64 From: Mini Vang MD PCP: MOHAN Melchor Status: DEP [facility] Study:Foot 2 Views Date of Exam: 5 Exam# [id number] Ordering Dr: Florinda Boyle PROCEDURE: FOOT 2 VIEWS 05/22/2025 REASON FOR EXAM: PAIN AT BASE OF 1ST TOE TECHNIQUE: Procedure Code: RADFO2 Modality: DX Procedure: FOOT 2 VIEWS Right foot two views COMPARISON: None FINDINGS: There is no fracture or dislocation identified. 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 Osteopenia is noted. There is no focal soft tissue abnormality or radiopaque foreign body. RAD/Foot 2 Views IMPRESSION: No fracture or dislocation is identified. Reading Location: [facility] CC: RAPIER INSERTION LOOM FIXER-C Jess Vail; TORRI Wu ~ Chapter Relations Administrator: Signed [facility] 10-20-2024 Note [facility] Medical Records Department [address] [place] [address] History Physical Exam 10/20/24 0905 MR#: [id number] Acct: [id number] Name: ASHLY FELTON Rep #: [id number] : 1960 64 From: Juwan Gaines MD PCP: MOHAN Melchor Status:REG [facility] Location: [place] [address] HPI - General General Date of Admission: 10/20/24 Date of Service: 10/20/24 Chief Complaint: Colonoscopy HPI Narrative ASHLY FELTON, is a 64 F who presents for colonoscopy today. She recently underwent Cologuard test which was positive. I saw the patient in the office and recommended colonoscopy. She denied any GI issues or problems. [facility] Medical History Wears glasses Leg cramps Non-smoker Arthritis Positive colorectal cancer screening using Cologuard test Home Medications ???Medication ???Instructions ???Recorded ???Last Taken ???Type cholecalciferol (vitamin D3) 25 25 mcg PO DAILY 10/18/24 Unknown H istory mcg (1,000 unit) capsule (Vitamin D3) multivitamin (Daily Multi-Vitamin 1 tab PO DAILY 10/18/24 Unknown H istory tablet) Allergy/AdvReac Type Severity Reaction Status Date / Time No Known Allergies Allergy Verified 10/20/24 08:16 Surgical History History of endometrial ablation History of hysterectomy Social History adopted: No household members: spouse housing: house number of children: 4 current occupational status: employed current occupation: [employer] pets and animals: No leisure activities: reading Smoking Status: Never smoker second hand exposure: No alcohol intake: never substance use type: does not use well-balanced diet: daily or most days caffeine: No eating out: 1-3 times/week what type of physical activity do you participate in: walking and bicycling frequency: 3-4 times per week duration: 30-45 minutes/day linda/uatsdin: Alevism seatbelt use: always do you feel safe at home: Yes additional social history: [place] Vital Signs Vital Signs Vital Signs: 10/20/24 08:16 10/20/24 08:16 10/20/24 08:43 Temperature 97.8 F 97.8 F Temperature Source Temporal Pulse Rate 73 73 Respiratory Rate 16 16 Respiratory Pattern Normal Blood Pressure 112/84 H 112/84 H Blood Pressure Mean 93 Blood Pressure Source Monitor Blood Pressure Position Semi-Fowlers Blood Pressure Location Left Arm Pulse Ox 99 99 Oxygen Delivery Method Room Air Room Air Weight Weight: 123 lb 0.287 oz Body Mass Index (BMI) 21.1 Physical Exam Const alert, oriented x3 and no apparent distress Assessment Plan Assessment/Plan (1) Positive colorectal cancer screening using Cologuard test: PLAN: Plan The patient is a 64-year-old female in need of a colonoscopy. She recently had a positive Cologuard test. I saw the patient in the office and recommended colonoscopy. We discussed the details of the planned procedure including the risks benefits and alternatives. She wished to proceed. Patient presents today to have a colonoscopy performed. Charges/Coding Visit Charges Inpatient E M: 11076 Init Hosp L1 10/20/24 0907 Cosigner Signature (if applicable): CC: MOHAN Vail; Dr. Juwan Gaines MD Signed [facility] 10-02-2023 Miscellaneous Notes PT returned call. Reviewed with pt. Voiced understanding. Tika Colbert MA LM to review with pt. Tika Colbert MA ----- Message from Christa Villafana PA-C sent at 10/01/2023 7:43 PM EST ----- Please contact patient of positive influenza A result. Tamiflu was sent into pharmacy on file. documented in this encounter [facility] 10-01-2023 Note HNO ID: [id number] Author: CHRISTA VILLAFANA PA-C Service: ? Author Type: Physician Sat Tutor Type: Progress Notes Filed: 10/01/2023 19:43 Note Text: Patient tested positive for influenza A on testing. Sending Tamiflu into pharmacy on file. Patient is to take through full course. Patient is to get plenty of rest and fluids. Follow-up with primary care doctor if needed. [facility] 10-01-2023 History of Present illness Narrative Patient tested positive for influenza A on testing. Sending Tamiflu into pharmacy on file. Patient is to take through full course. Patient is to get plenty of rest and fluids. Follow-up with primary care doctor if needed. documented in this encounter [facility] 10-01-2023 Note HNO ID: [id number] Author: PABLITO MAX MD Service: ? Author Type: Physician Type: Progress Notes Filed: 10/01/2023 10:25 Note Text: Ashly Felton is a 63 year old female who presents with Sore Throat (Fever,yesterday) She is 63 years old presenting today with a chief complaint of sore throat onset yesterday. She also has fever of 99.9 ?F as well as body aches. 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 She agreed to be tested. PAST MEDICAL HISTORY Diagnosis Date PMH - PAST MEDICAL HISTORY OF arthritis hands There is no problem list on file for this patient. Current Outpatient Medications Medication Sig Dispense Refill MULTIVITAMIN TAB Take one(1) tablet daily. 0 CHOLECALCIFEROL (VITAMIN D3) 1,000 UNIT TAB Take one(1) tablet daily. 0 naproxen sodium(ALEVE 220 MG TAB) takes one tablet every day as needed as directed 0 No current facility-administered medications for this visit. Social History Tobacco Use Smoking status: Never Smokeless tobacco: Never Substance Use Topics Alcohol use: No Drug use: No Alcohol Use: No Tobacco Use: Never FAMILY HISTORY Problem Relation Age of Onset Heart Father Review of Systems Constitutional: Negative for chills and fever. HENT: Positive for sore throat. Negative for congestion, ear pain and sinus pain. Respiratory: Positive for cough. Negative for hemoptysis, sputum production, shortness of breath, wheezing and stridor. Cardiovascular: Negative for chest pain. Gastrointestinal: Negative for abdominal pain, diarrhea and vomiting. Skin: Negative for rash. Neurological: Negative for dizziness and headaches. BP 120/80 Pulse 96 Temp (Src) 98.1 (Temporal) Resp 16 Wt 125 lb (56.7kg) SpO2 98% Physical Exam Vitals and nursing note reviewed. Constitutional: Comments: PHYSICAL EXAMINATION: GENERAL:The patient is alert oriented in no acute distress. HEAD:Head is atraumatic normocephalic. EYES: Normal sclerae and conjunctivae. EARS: Normal tympanic membranes. NOSE: No maxillary sinus tenderness bilaterally. MOUTH: Erythema of the pharynx. Tongue and lips are unremarkable. Uvula at midline. NECK: No cervical adenopathy. No stridor. No trismus. No hoarseness. Normal phonation. LUNGS: No labored breathing. Clear to auscultation. I do not suspect pneumonia. HEART: Regular rate and rhythm. No murmurs, rubs or gallops. MUSCULOSKELETAL: Moves all extremities. SKIN: Warm, dry no clubbing cyanosis or edema. NEUROLOGY: Cranial nerves II through XII grossly intact without any focal neurological deficits. PSYCHIATRY: Cooperative. Normal mood and affect. Rapid strep test was negative. Culture is pending. COVID-19, influenza, RSV obtained results are pending. Suspect viral illness. Patient would like to be treated with Paxlovid as well as Tamiflu if results are positive. Home-going instructions discussed with patient. Follow-up if not improving. Discharged in stable condition. ASSESSMENT/PLAN: 1. Acute pharyngitis, unspecified etiology - ICD9: 462, ICD10: J02.9 (primary diagnosis) - RAPID GROUP A STREP RFLX TO PCR - GROUP A STREPTOCOCCUS BY PCR 2. Viral illness - ICD9: 079.99, ICD10: B34.9 - COVID AND INFLUENZA A/B AND RSV NAAT, EXPEDITED Pablito Max [facility] 10-01-2023 Instructions aPblito Max MD - 10/01/2023 10:23 AM EST Patient will be notified of results within the next 12 to 24 hours. Patient instructed to return in the next 3 to 5 days if not improving. Patient instructed to keep routine appointment with primary care provider. documented in this encounter [facility] 10-01-2023 History of Present illness Narrative Ashly Felton is a 63 year old female who presents with Sore Throat (Fever,yesterday) She is 63 years old presenting today with a chief complaint of sore throat onset yesterday. She also has fever of 99.9 F as well as body aches. 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 She agreed to be tested. PAST MEDICAL HISTORY Diagnosis Date PMH - PAST MEDICAL HISTORY OF arthritis hands There is no problem list on file for this patient. Current Outpatient Medications Medication Sig Dispense Refill MULTIVITAMIN TAB Take one(1) tablet daily. 0 CHOLECALCIFEROL (VITAMIN D3) 1,000 UNIT TAB Take one(1) tablet daily. 0 naproxen sodium(ALEVE 220 MG TAB) takes one tablet every day as needed as directed 0 No current facility-administered medications for this visit. Social History Tobacco Use Smoking status: Never Smokeless tobacco: Never Substance Use Topics Alcohol use: No Drug use: No Alcohol Use: No Tobacco Use: Never FAMILY HISTORY Problem Relation Age of Onset Heart Father Review of Systems Constitutional: Negative for chills and fever. HENT: Positive for sore throat. Negative for congestion, ear pain and sinus pain. Respiratory: Positive for cough. Negative for hemoptysis, sputum production, shortness of breath, wheezing and stridor. Cardiovascular: Negative for chest pain. Gastrointestinal: Negative for abdominal pain, diarrhea and vomiting. Skin: Negative for rash. Neurological: Negative for dizziness and headaches. BP 120/80 Pulse 96 Temp (Src) 98.1 (Temporal) Resp 16 Wt 125 lb (56.7kg) SpO2 98% Physical Exam Vitals and nursing note reviewed. Constitutional: Comments: PHYSICAL EXAMINATION: GENERAL:The patient is alert oriented in no acute distress. HEAD:Head is atraumatic normocephalic. EYES: Normal sclerae and conjunctivae. EARS: Normal tympanic membranes. NOSE: No maxillary sinus tenderness bilaterally. MOUTH: Erythema of the pharynx. Tongue and lips are unremarkable. Uvula at midline. NECK: No cervical adenopathy. No stridor. No trismus. No hoarseness. Normal phonation. LUNGS: No labored breathing. Clear to auscultation. I do not suspect pneumonia. HEART: Regular rate and rhythm. No murmurs, rubs or gallops. MUSCULOSKELETAL: Moves all extremities. SKIN: Warm, dry no clubbing cyanosis or edema. NEUROLOGY: Cranial nerves II through XII grossly intact without any focal neurological deficits. PSYCHIATRY: Cooperative. Normal mood and affect. Rapid strep test was negative. Culture is pending. COVID-19, influenza, RSV obtained results are pending. Suspect viral illness. Patient would like to be treated with Paxlovid as well as Tamiflu if results are positive. Home-going instructions discussed with patient. Follow-up if not improving. Discharged in stable condition. ASSESSMENT/PLAN: 1. Acute pharyngitis, unspecified etiology - ICD9: 462, ICD10: J02.9 (primary diagnosis) - RAPID GROUP A STREP RFLX TO PCR - GROUP A STREPTOCOCCUS BY PCR 2. Viral illness - ICD9: 079.99, ICD10: B34.9 - COVID AND INFLUENZA A/B & RSV NAAT, EXPEDITED Pablito Max documented in this encounter [facility] Evaluation note No assessment inform ation available [facility] Work Phone: Evaluation note Diagnosis Acute pharyngitis, unspecified etiology- Primary Viral illness Unspecified viral infection, in conditions classified elsewhere and of unspecified site [facility] Diagnosis Influenza A- Primary Influenza with other respiratory manifestations [facility] Diagnosis Onset Date Resolution Status Pharyngitis acute Sore throat noneactive [facility] Work Phone: Evaluation note* Diagnosis Onset Date Resolution Status Admit Date Right foot injury acute Septemb 2024 12:26pm [facility] Work Phone: Progress note Author Kings Boyle [facility] Note Date/Time May 22, 2025 12:52pm [facility] [address] [place] [address] OFFICE VISIT Date of Service: 05/22/25 MR#: [id number] Acct: [id number] Patient: ASHLY FELTON Rep #: [id number] : 1960 Provider: TORRI Rucker Age/Sex: 64/F Location: [facility] Status: Signed Intake Vital Signs 10/20/24 08:16 Height 1.63 m Intake Visit Reasons: RIGHT FOOT INJURY Chief Complaint: right foot pain Allergies No Known Allergies Allergy (Verified 10/20/24 08:16) [facility] Medical History Wears glasses Leg cramps Non-smoker Arthritis Positive colorectal cancer screening using Cologuard test Surgical History History of endometrial ablation History of hysterectomy Social History adopted: No household members: spouse housing: house number of children: 4 current occupational status: employed current occupation: [employer] pets and animals: No leisure activities: reading Smoking Status: Never smoker second hand exposure: No alcohol intake: never substance use type: does not use well-balanced diet: daily or most days caffeine: No eating out: 1-3 times/week what type of physical activity do you participate in: walking and bicycling frequency: 3-4 times per week duration: 30-45 minutes/day linda/uatsdin: Alevism seatbelt use: always do you feel safe at home: Yes additional social history: Rasta HPI HPI Chief Complaint: right foot pain Details: ASHLY FELTON, is a 64 F who presents to the office today for right foot pain. Pt injured her right foot. This occurred wednesday. She was moving an eliptical exercise machine and dropped it onto the right foot. It struck at the base of the 1st toe. She has pain in the 1st MTP joint which radiates up the 1st MT. Shehas some swelling at the distal 1st MT. It hurts to ledy the 1st toe. Other toes are not affected. No numbness or tingling. ROS Const Constitutional: No chills, fatigue or fever(s) Musc Musculoskeletal: Positive for joint pain, joint swelling and stiffness; No deformity, limited range of motion, numbness or tingling Skin Skin: No redness, rash or wounds Neuro Neurology: No numbness or tingling Endo Endocrine: No fatigue Exam Const General: cooperative, healthy appearing, comfortable, no acute distress, well developed and well groomed Nutritional Appearance: average body habitus and well nourished Orientation: alert, awake and oriented x3 Musc Other: R foot: some mild swelling at the distal 1st MT/1st MTP joint. ROM and strength normal. tender to palp at 1st MTP joint, distal 1st MT and 1st MT shaft. Skin Lesions: no lesions Rashes: no rashes Wounds: no wounds Coding Level of Care Code Off vis,est,level 2 Diagnoses Right foot injury S99.921A Assessment and Plan Assessment and Plan (1) Right foot injury: Status: Acute Plan: Xray obtained today interpreted by radiology - no acute fracture. If no improvement 2 weeks may refer to podiatry for further evaluation. Orders: Orders Foot 2 Views Today S99.921A - Unspecified injury of right foot, initial encounter 05/22/25 1307 <Electronically signed by Kings WILD> Date _ Kings WILD Cosigner Signature: Date (if applicable) CC: ~ [facility] Work Phone: Reason for referral (narrative)No reason for [facility] Work Phone: Health Concerns Infection Onset Date Last Indicated Resolved Time COVID-19 Rule-Out 10/01/2023 10/01/2023 10/01/2023 3:32 PM EST Infection Onset Date Last Indicated Resolved Time COVID-19 Rule-Out 10/01/2023 10/01/2023 10/01/2023 3:32 PM EST Influenza 10/01/2023 10/01/2023 Infection Onset Date Last Indicated Resolved Time Influenza 10/01/2023 10/01/2023 Summary Purpose Family History No Family History Records FoundNo Family History Records Found Advance Directives No Advanced Directives Records FoundNo Advanced Directives Records Found Chief Complaint and Reason for Visit Chief Complaint Sore throat Reason for Visit Pharyngitis Sore throat Chief Complaint Admit Date RIGHT FOOT INJURY May 22, 2025 12:26pm RIGHT FOOT TWO VIEWS May 22 12:51pm SCREENING May 22, 2025 3:48pm Reason for Visit Admit Date Right foot injury May 22, 2025 12:26pm Additional Source Comments Goals (unrecognized section and content) Goals may be documented in a n alternate sectionGoals may be documented in an alternate sectionGoals may be documented in an alternate sectionGoals may be documented in an alternate section Source Comments (unrecognize d section and content) In the event this informatio n is protected by the Federal Confidentiality of Alcohol and Drug Abuse Patient Records regulations: The Federal rules restrict any use of the information to criminally investigate or prosecute any alcohol or drug abuse patient.[facility] the event this information is protected by the Federal Confidentiality of Alcohol and Drug Abuse Patient Records regulations: The Federal rules restrict any use of the information to criminally investigate or prosecute any alcohol or drug abuse patient.[facility] the event this information is protected by the Federal Confidentiality of Alcohol and Drug Abuse Patient Records regulations: The Federal rules restrict any use of the information to criminally investigate or prosecute any alcohol or drug abuse patient.[facility] Reason for Visit (unrecogniz ed section and content) Reason Comments Sore Throat Fever,yesterday Reason Comments Results FLU A INFORMATION SOURCE (unrecogn ized section and content) DATE CREATED AUTHOR 10/02/2023 [facility] DATE CREATED AUTHOR AUTHOR'S JULIO CÉSAR ATION 06/17/2025 [facility] Care Teams (unrecognized sec tion and content) Team Status: Active Member Role Status Dates Dr. Ghassan Carpenter , Family Provider Active Marta Dorantes DO Primary Care Provider Active Team Status: Inactive Member Role Status Dates Marta Dorantes , Primary Care Provider, Referring Provider Active TORRI Bennett Attending Provider Active Team Status: Inactive Member Role Status Dates Marta Dorantes , Primary Care Provider Active TORRI Bennett Attending Provider, Referring Provi mian Active Team Status: Active Member Role/Relationship Status Dates Jess Vail NP-C Primary care physician Active Team Status: Inactive Member Role/Relationship Status Dates Jess Vail NP-C Primary care physician Active Start: May 22, 2025 End: May 22, 2025 Jess Vail NP-C Referring Provider Active St art: May 22, 2025 End: May 22, 2025 TORRI Bennett Attending physician Active St art: May 22, 2025 End: May 22, 2025 Team Status: Inactive Member Role/Relationship Status Dates Jess Vail NP-C Primary care physician Active Start: May 22, 2025 End: May 22, 2025 Jess Vail NP-C Referring Provider Active St art: May 22, 2025 End: May 22, 2025 TORRI Bennett Attending physician Active St art: May 22, 2025 End: May 22, 2025 Team Status: Active Member Role/Relationship Status Dates Jess Vail NP-C Primary care physician Active Start: May 22, 2025 Jess Vail NP-C Attending physician Active S tart: May 22, 2025 Jess Vail RAPIER INSERTION LOOM FIXER-C Referring Provider Active St art: May 22, 2025 FOR RECORDS PERTAINING TO PATIENTS WHO ARE OR HAVE BEEN ENROLLED IN A CHEMICAL DEPENDENCY/SUBSTANCEABUSE PROGRAM, SOME INFORMATION MAY BE OMITTED. This clinical summary was aggregated from multiple sources. Caution should be exercised in using it in the provision of clinical care. This summary normalizes information from multiple sources, and as a consequence, information in this document may materially change the coding, format and clinical context of patient data. In addition, data may be omitted in some cases. CLINICAL DECISIONS SHOULD BE BASED ON THE PRIMARY CLINICAL RECORDS. [facility], [facility]. provides no warranty or guarantee of the accuracy or completeness of information in this document.
== END | disposition home or self-care (01) ==
LOC: OPBI 10:25
PROVIDERS: PCP Nurse Practitioner Family; Referring Provider Nurse Practitioner Family; Visit Provider Nurse Practitioner Family
DX: Z12.31 Encounter for screening mammogram for malignant neoplasm of breast (principal)
CPT/HCPCS: 77063; 77067